=== PATIENT | male | born 1960 | race Caucasian/White ===

== ENCOUNTER 2017-12-09 06:48 | Day surgery (SDC) | payer BC ==
[2017-12-06 13:09] VITALS: BMI 45.0
--- NOTE | 2017-12-09 10:39 | OP ---
DATE OF PROCEDURE: 12/09/2017 PROCEDURES: Colonoscopy with biopsy and polypectomy. INDICATION FOR PROCEDURE: Screening for malignant neoplasms of the colon, personal history of colon polyps (diagnosed at age 24). DESCRIPTION OF PROCEDURES: After the risks and benefits of the procedure were explained to the patie nt including risks of bleeding, infection, perforation, reaction to anesthesia, aspiration and/or stefan n, informed consent was obtained. The patient was then taken to the endoscopy suite where deep sedat ion was administered via propofol and anesthesia support. Once adequate sedation was achieved, an ex ternal examination was performed and then the standard colonoscope was introduced into the rectum and advanced to the terminal ileum with some difficulty requiring manual abdominal pressure in order to facilitate passage of the scope. The quality of the prep was good to excellent with some solid debri s that was amenable to suctioning. The patient tolerated the procedure well with no immediate periop erative complications. Once the procedure was complete, the patient was taken to recovery area in sa tisfactory condition. COLONOSCOPY FINDINGS: Digital Rectal Exam: Normal. Colon Findings: Normal-appearing mucosa was seen in the terminal ileum as well as in the cecum, the ileocecal valve and appendiceal orifice. Three polyps measuring approximately 3-5 mm in size were se en in the ascending colon and completely removed with cold snare polypectomy. They were retrieved an d placed in a specimen jar for evaluation. Six polyps were seen in the transverse colon measuring ap proximately 3-8 mm in size and completely removed with combination of biopsy forceps and cold snare p olypectomy. They were all completely removed and retrieved and placed in specimen jar for evaluation . Three additional polyps were seen in the descending colon measuring 4-6 mm and were completely rem alan with cold snare polypectomy. They were retrieved and placed in a specimen jar for evaluation. Scattered small diverticula were seen in the distal descending and sigmoid colon. Otherwise normal m ucosa was seen in these regions as well as normal mucosa was seen in the rectum. Small internal hemo rrhoids were seen on rectal retroflexion. IMPRESSION: 1. Three ascending colon polyps measuring 3-5 mm in size, status post cold snare polypectomy. 2. Six transverse colon polyps measuring 4-8 mm, status post cold snare polypectomy and biopsy force ps removal. 3. Three descending colon polyps measuring 4-6 mm, status post cold snare polypectomy. 4. Mild left-sided diverticulosis. 5. Internal hemorrhoids. RECOMMENDATIONS: 1. We will follow up on the pathology results with repeat interval colonoscopy depending on patholog y results. 2. Would recommend a higher fiber diet given the presence of diverticulosis and hemorrhoids. 3. Follow up in the GI clinic as needed.
[2017-12-09] MEDS ORDERED: Acetaminophen 500 MG TAB ONE (10:47)
[2017-12-09] MEDS ORDERED: PROPOFOL 200 MG/20 ML VIAL ONE (16:42)
== END 2017-12-09 10:58 | disposition home or self-care (01) ==
LOC: SDC 06:48
PROVIDERS: ATTEND Internal Medicine
PROC: 0DBK8ZX Excision of Ascending Colon, Via Natural or Artificial Opening Endoscopic, Diagnostic (ICD-10-PCS; principal; 2017-12-09)
PROC: 0DBL8ZX Excision of Transverse Colon, Via Natural or Artificial Opening Endoscopic, Diagnostic (ICD-10-PCS; principal; 2017-12-09)
PROC: 0DBM8ZX Excision of Descending Colon, Via Natural or Artificial Opening Endoscopic, Diagnostic (ICD-10-PCS; principal; 2017-12-09)
DX: Z12.11 Encounter for screening for malignant neoplasm of colon (principal); D12.2 Benign neoplasm of ascending colon; K63.5 Polyp of colon; G47.30 Sleep apnea, unspecified; F17.200 Nicotine dependence, unspecified, uncomplicated; K64.8 Other hemorrhoids; Z88.5 Allergy status to narcotic agent; Z79.899 Other long term (current) drug therapy
CPT/HCPCS: 88305; J2704

== ENCOUNTER 2018-11-17 10:01 | Inpatient (IN) | payer BC ==
[2018-11-17] MEDS ORDERED: Diltiazem 125 MG/25 ML ONE (10:10)
[2018-11-17] MEDS ORDERED: Digoxin 0.5 MG/2 ML AMP ONE (10:21)
[2018-11-17] MEDS ORDERED: Magnesium 2 GM/50 ML BAG (IN WATER) ONE (10:23)
[2018-11-17 10:26] LABS: #Basophils 0.1 thou/uL (0.0-0.2); #Eosinphils 0.2 thou/uL (0.0-0.7); #Lymphocytes 2.4 thou/uL (1.20-3.40); #Monocytes 0.9 thou/uL (0.11-0.59); #Neutrophils 6.9 thou/uL (1.40-6.50); %Basophils 0.6 % (0.0-1.0); %Eosinophils 2.4 % (0.0-10.0); %Lymphocytes 22.9 % (21.0-51.0); %Monocytes 8.7 % (0.0-10.0); %Neutrophils 65.5 % (42.0-75.0); Hemoglobin 16.2 g/dL (14.0-18.0); Mean Corpuscular HGB CONC 32.9 g/dL (32.0-36.0); Mean Corpuscular Hemoglobin 30.6 pg (27.0-31.0); Mean Platelet Volume 9.2 fL (7.4-10.4); Platelet Count 157 thou/uL (130-400); RBC Distribution Width 13.9 % (11.5-14.5); Red Blood Cell (RBC) Count 5.28 mill/uL (4.70-6.10); White Blood Cell (WBC) Count 10.5 thou/uL (4.8-10.8)
--- NOTE | 2018-11-17 10:35 | RAD ---
EXAM: Single view of the chest HISTORY: Dyspnea COMPARISON: 01/03/2010 FINDINGS: Single view of the chest shows a normal sized cardiomediastinal silhouette. There is no michael dence of consolidation, mass, or pleural effusion. The bones are unremarkable. IMPRESSION: No evidence of acute cardiopulmonary disease
[2018-11-17 10:51] LABS: ALT (SGPT) 24 U/L (8-55); AST (SGOT) 17 U/L (5-34); Albumin 3.9 g/dL (3.5-5.0); Alkaline Phosphatase 69 U/L (40-150); Anion Gap 12 mmol/L (10-20); BUN (Urea Nitrogen) 19 mg/dL (8.4-25.7); Bilirubin, Total 0.7 mg/dL (0.2-1.2); CK (CPK) 152 U/L (30-200); Calc. Creatinine Clearance 0 mL/min (70-130); Carbon Dioxide 24 mmol/L (22-29); Chloride 105 mmol/L (98-107); Estimated GFR-MDRD 58; Globulin 2.6 g/dL (2.4-3.5); Glucose 144 mg/dL (70-105); Lipase 11 U/L (8-78); Potassium 4.2 mmol/L (3.5-5.1); Protein, Total 6.5 g/dL (6.0-8.3); Sodium 137 mmol/L (136-145)
--- NOTE | 2018-11-17 11:28 | CT ---
EXAM: CTA of the chest HISTORY: Shortness of breath for several weeks COMPARISON: None TECHNIQUE: Multiple contiguous axial images were obtained a CTA of the chest with contrast per pulmon rigo embolism protocol. 3-D oblique MIP reformats and direct coronal reformats were performed. FINDINGS: HEART: Normal in size without focal cardiac abnormality. PULMONARY ARTERIES: Normal in caliber without filling defects to suggest pulmonary emboli. MEDIASTINUM: No hilar or mediastinal lymphadenopathy. LUNGS: No focal infiltrates or masses. PLEURAL SPACE: Small bilateral pleural effusions with adjacent atelectasis CHEST WALL SOFT TISSUES: Unremarkable VISUALIZED OSSEOUS STRUCTURES: Unremarkable VISUALIZED SUBDIAPHRAGMATIC STRUCTURES: Unremarkable IMPRESSION: 1. No evidence of pulmonary thromboembolism 2. Small bilateral pleural effusions with adjacent atelectasis
[2018-11-17] MEDS ORDERED: Enoxaparin Sodium 100 MG/ML SYRINGE ONE (11:29)
[2018-11-17] MEDS ORDERED: Enoxaparin Sodium 80 MG/0.8 ML SYRINGE ONE (11:29)
[2018-11-17 13:22] LABS: Bilirubin Negative (Negative); Blood, Urine Negative (Negative); Clarity Clear (Clear); Glucose, Urine (Dipstick) Normal (Negative); Leukocyte Negative Leu/uL (Negative); Nitrite Negative (Negative); Protein, Urine (Dipstick) 100 mg/dL (Neg-Trace); RBC/HPF 0-3 HPF (0-3); Squamous Epithelial None Seen HPF (0-3); Urobilinogen Normal mg/dL (Less than 2); WBC/HPF 0-3 HPF (0-3)
[2018-11-17 13:44] LABS: Bacteria/HPF None Seen HPF (None Seen)
[2018-11-17] MEDS ORDERED: Ondansetron PF 4 MG/2 ML Vial IVP PRN ×2 (13:52→14:02)
[2018-11-17] MEDS ORDERED: Ondansetron ODT 4 MG TAB SL PRN (13:52)
[2018-11-17] MEDS ORDERED: Aspirin 325 MG TAB PO SCH (14:00)
[2018-11-17] MEDS ORDERED: cloNIDine 0.1 MG TAB PO PRN (14:02)
[2018-11-17] MEDS ORDERED: Ondansetron ODT 4 MG TAB PO PRN (14:02)
[2018-11-17] MEDS ORDERED: Acetaminophen 500 MG TAB PO PRN (14:02)
[2018-11-17] MEDS ORDERED: Labetalol HCl 100 MG/20 ML VIAL SLOW IVP PRN (14:02)
[2018-11-17 14:16] LABS: Troponin I 0.014 ng/mL (< 0.028)
[2018-11-17] MEDS: Digoxin 0.5 MG/2 ML AMP SLOW IVP SCH ×2 (17:20→22:36)
[2018-11-17 17:24] LABS: Troponin I 0.033 ng/mL (< 0.028)
--- NOTE | 2018-11-17 18:54 | HP ---
PRIMARY CARE PROVIDER: Anselmo Abraham MD CHIEF COMPLAINT: Shortness of breath. HISTORY OF PRESENT ILLNESS: This is a 58-year-old male, who presents to [facility] Emergency Department complaining of persistent and worsening shortness of breath, decreased exercise tolerance and activity level with lower extremity swelling over the last 3 to 4 weeks. The patient noted these symptoms improved with rest or relaxation, recurring with activity or working. The patient denied any recent trauma, injury, fever, chills, or increased cough. The patient does admit to smoking up to a pack of cigarettes daily and has noted a remote history of atrial fibrillation in 2003. The patient was treated medically at that time, but states he was not on anticoagulation. The patient removed himself from the medication after stabilizing, and states he has been doing fairly well over the last 15 years. The patient states he underwent a cardiac chemical stress test in 2018 including aortogram and echocardiogram with Dr. Tolbert. The patient states he was essentially given a clean bill of health, and states he takes no specific medication other than occasional aspirin. The patient states his activity and work schedule have been decreasing due to fatigue and shortness of breath as well as increasing swelling of his legs over the last 2 weeks. The patient felt like he was having difficulty with his lungs due to smoking and had been using his CPAP on a regular basis since 2008. The patient admits to some chest pain, but no jaw or left arm discomfort. The patient denied any personal history or strong family history of early coronary artery disease. In the emergency room, the patient underwent general evaluation with initial vital signs showing hypertension with diastolic blood pressures in the 110 to 115 as well as atrial fibrillation with rapid ventricular response, heart rates noted in the 130s. The patient received digoxin and Cardizem infusion in addition to subcutaneous Lovenox 1 mg/kg and diltiazem infusion after receiving a bolus. The patient also received magnesium sulfate and aspirin 324 mg. PAST MEDICAL HISTORY: 1. Tobacco abuse. 2. Chronic back pain. 3. History of atrial fibrillation in 2003. 4. Obesity. 5. Obstructive sleep apnea, on nocturnal CPAP. PAST SURGICAL HISTORY: 1. Status post bilateral total knee arthroplasty. 2. Status post appendectomy. 3. Status post of back surgery. CURRENT MEDICATIONS: Reviewed and negative. ALLERGIES: CODEINE. FAMILY HISTORY: Positive for hypertension. SOCIAL HISTORY: The patient is . Resides in the [facility]. Retired, performing farming and ranching activities currently. Smokes up to half a pack to a pack of cigarettes daily. No alcohol or illicit drug use. Accompanied by his and family in the emergency department. REVIEW OF SYSTEMS: CONSTITUTIONAL: Negative for weight loss or gain, ability to conduct usual activities. SKIN: Negative for rash, itching. EYES: Negative for double vision, pain. ENT/MOUTH: Negative for nose bleeding, neck stiffness, pain, tenderness. CARDIOVASCULAR: Negative for palpitations, dyspnea on exertion, orthopnea. RESPIRATORY: Negative for shortness of breath, wheezing, cough, hemoptysis, fever or night sweats. GASTROINTESTINAL: Negative for poor appetite, abdominal pain, heartburn, nausea, vomiting, constipation, or diarrhea. GENITOURINARY: Negative for urgency, frequency, dysuria, nocturia. MUSCULOSKELETAL: Negative for pain, swelling. NEUROLOGIC/PSYCHIATRIC: Negative for anxiety, depression. ALLERGY/IMMUNOLOGIC: Negative for skin rash, bleeding tendency. Otherwise, negative except as stated per HPI. PHYSICAL EXAMINATION: VITAL SIGNS: On admission, blood pressure 161/127, pulse 140, respiratory rate 22, temperature 98.7 degrees Fahrenheit, and O2 saturation 95% on room air. GENERAL APPEARANCE: This is a 58-year-old male, alert and oriented x3, pleasant, responsive, in no acute distress. HEENT: Pupils are equal, round, reactive to light and accommodation. Extraocular muscles are intact. Mild conjunctival injection bilaterally. Nares patent. OP is clear. Teeth in fair repair. NECK: Supple. No cervical adenopathy. No thyromegaly. No carotid bruits. No JVD appreciated. Cervical spine with full active and passive range of motion. No meningeal signs noted. CHEST: Diminished breath sounds with expiratory wheezing bilaterally. CARDIOVASCULAR: Distant heart sounds, S1 and S2, with irregular rate and rhythm. ABDOMEN: Obese. Landmarks are difficult to palpate due to the patient's body habitus. No rebound or guarding noted. EXTREMITIES: Warm and dry with fair turgor. Pitting edema to bilateral knees. Dobbins appearance to the lower extremities. Pulses palpable distally at the dorsalis pedis, posterior tibial, and popliteal arteries bilaterally. Capillary refill less than 2 seconds. NEUROLOGIC: Cranial nerves 2 through 12 are grossly intact. No focal or lateralizing signs appreciated. PERTINENT LABORATORY AND X-RAY FINDINGS: Sodium 137, potassium 4.2, chloride 105, CO2 of 24, BUN 19, creatinine 1.26, estimated GFR 58, glucose 144, calcium 9.0. LFTs within normal limits. Troponin-I negative x1. BNP 196. Albumin 3.9. Lipase 11. CBC within normal limits. D-dimer 1.84. Portable chest x-ray dated 11/17/2018, showed no acute cardiopulmonary process. CT angiogram of the chest, dated 11/17/2018, showed no evidence for pulmonary embolus. Small bilateral pleural effusions with associated atelectasis. EKG, dated 11/17/2018, by my interpretation shows atrial fibrillation with rapid ventricular response in the 130s. Attenuated R-waves noted in the precordial leads. Normal axis. ASSESSMENT AND PLAN: 1. Atrial fibrillation with rapid ventricular response. The patient will be admitted to the telemetry unit. We will continue rate control strategy with Cardizem 10 mg/hour. Continue Lovenox 1 mg/kg subcutaneously q.12 hours. Consult Cardiology Service for further investigation and consideration for ischemic rule out including cardiac catheterization. Check 2D transthoracic echocardiogram for wall motion abnormality and chamber dimensions. Check TSH and magnesium level. Continue aspirin 325 mg daily. 2. Hypertension. No formal diagnosis of hypertension prior to admission. We will continue serial blood pressure monitoring. Continue clonidine and labetalol as needed for systolic greater than or equal to 170. Continue Cardizem infusion. 3. Tobacco abuse. We will offer smoking cessation resources. DuoNeb q.4 hours scheduled x24 hours. 4. Chronic kidney disease, stage 3. Avoid nephrotoxic agents and limit contrast exposure. Serial creatinine monitoring. 5. Morbid obesity. Consider dietitian consult. [employer] diet. 6. Prophylaxis. SCDs while in bed. Pepcid 20 mg p.o. b.i.d. 7. Code status is full. Surrogate medical decision maker is the patient's spouse. Job ID: [id number]
[2018-11-17] MEDS: Famotidine 20 MG TAB PO SCH (20:39)
[2018-11-17] MEDS: Enoxaparin Sodium 60 MG/0.6 ML SYRINGE SC SCH (20:39)
[2018-11-17] MEDS: Enoxaparin Sodium 120 MG/0.8 ML SYRINGE SC SCH (20:39)
[2018-11-17] MEDS: Diltiazem 125 MG in Sodium Chloride 0.9% 100 ML IVPB SCH (21:31)
--- NOTE | 2018-11-17 22:14 | CON ---
DATE OF CONSULTATION: HISTORY OF PRESENT ILLNESS: Jose Luis Ortiz is a 58-year-old white male who was hospitalized here at [facility] in October 2004 with an episode of atrial fibrillation. He had previous normal noninvasive studies, but continued to have chest discomfort. He was found to have minimal coronary artery disease. He was discharged on Lanoxin 0.25 daily, Cardizem 240 daily, and aspirin 325 daily. He ultimately weaned himself off those medicines, states he has not had any problems over the last 14 years until now. Also in September 2017, he saw Dr. Tolbert. He had ultrasound of the aorta, which was normal, some type of a stress test which was normal as well as an echocardiogram which was normal. Over the last 2 to 3 weeks, he has had problems with increasing dyspnea where he could do less and less work. Also, he has developed peripheral edema over the last week. He denies any significant chest discomfort and did not notice any palpitations. Ultimately with his increased shortness of breath, came to the emergency room, was found to have atrial fibrillation with heart rates in the 130s, diastolic pressures in the 110-115 range. He has been placed on Cardizem drip. He has been given Lovenox 1 mg/kg b.i.d. and also has been given digoxin 0.25 twice IV. He states that his breathing has improved. PAST MEDICAL HISTORY: He denies any previous history of hypertension. He has obstructive sleep apnea, on CPAP, chronic back pain, history of atrial fibrillation in 2004, and obesity. PAST SURGICAL HISTORY: Status post bilateral knee replacements, appendectomy and back surgery. MEDICATIONS: None. ALLERGIES: CODEINE CAUSES NAUSEA. SOCIAL HISTORY: He smokes 1 pack per day, but has cut back to about 5 cigarettes per day now. He is a former rancher. He rarely drinks alcohol. FAMILY HISTORY: Negative for coronary artery disease with myocardial infarction or CABG in the immediate family. PHYSICAL EXAMINATION: VITAL SIGNS: Blood pressure 145/94, pulse of 87 and irregularly irregular. HEENT: PERRL. NECK: Supple. CHEST: Clear. CARDIAC: S1 and S2 normal without any S3, S4. 1/6 systolic ejection murmur. Carotid upstrokes are normal without bruits. ABDOMEN: Obese, normal bowel sounds. No tenderness. EXTREMITIES: Reveal 2+ pretibial edema to the knee. NEUROLOGIC: Grossly intact. SKIN: Warm and dry. LABORATORY DATA: EKG revealed atrial fibrillation with rapid ventricular response, 136 per minute, low-voltage QRS. CBC is unremarkable. D-dimer 1.84. Troponin I is up to 0.033. Sodium 137, potassium 4.2, chloride 105, carbon dioxide 24, BUN 19 , creatinine 1.26. BNP 196.0. TSH is normal. Chest CTA revealed no evidence of pulmonary embolism. There were small bilateral pleural effusions with adjacent atelectasis. IMPRESSION: 1. Paroxysmal atrial fibrillation, now with recurrence probably over the last 2- 3 weeks. His CHADS-VASc score is greater than 2 and I agree that he should have long-term anticoagulation. 2. Hypertension, untreated. 3. Elevated glucose, hemoglobin A1c to be performed in the morning. 4. Smoker. 5. Obstructive sleep apnea. PLAN: The patient will be maintained on Cardizem drip and 1 mg/kg of Lovenox b.i.d. Echocardiogram will be performed and further decision will be made regarding other therapy. It would probably be best to have him undergo electrical cardioversion while he is hospitalized. However, I would need to have better knowledge of his left ventricular function. Also with his peripheral edema, I feel that he should be diuresed. Job ID: [id number] [facility]
[2018-11-18] MEDS: Furosemide 20 MG/2 ML VIAL SLOW IVP SCH ×2 (05:59→14:12)
[2018-11-18 06:53] LABS: Hemoglobin A1c 6.6 % (4.0-6.0)
[2018-11-18 06:54] LABS: Anion Gap 12 mmol/L (10-20); BUN (Urea Nitrogen) 15 mg/dL (8.4-25.7); Calc. Creatinine Clearance 192 mL/min (70-130); Calcium 8.5 mg/dL (7.8-10.44); Carbon Dioxide 23 mmol/L (22-29); Cardiac Risk 4.4 (Less than 4.5); Chloride 104 mmol/L (98-107); Cholesterol 124 mg/dl (< 200 Desired); Estimated GFR-MDRD 74; Glucose 103 mg/dL (70-105); HDL Cholesterol 28 mg/dL (>60 Neg Risk); LDL Cholesterol, Calculated 79 mg/dL; Potassium 4.2 mmol/L (3.5-5.1); Sodium 135 mmol/L (136-145); Triglycerides 86 mg/dL (Less than 150)
[2018-11-18 07:16] LABS: Hemoglobin 15.5 g/dL (14.0-18.0); Mean Corpuscular HGB CONC 32.5 g/dL (32.0-36.0); Mean Corpuscular Hemoglobin 30.4 pg (27.0-31.0); Mean Corpuscular Volume 93.4 fL (78.0-98.0); Mean Platelet Volume 9.4 fL (7.4-10.4); Platelet Count 133 thou/uL (130-400); RBC Distribution Width 13.8 % (11.5-14.5); Red Blood Cell (RBC) Count 5.09 mill/uL (4.70-6.10); White Blood Cell (WBC) Count 8.9 thou/uL (4.8-10.8)
[2018-11-18] MEDS: Diltiazem 125 MG in Sodium Chloride 0.9% 100 ML IVPB SCH (08:46)
[2018-11-18] MEDS ORDERED: Prevnar 13-Val Conj/PF 0.5 ML SYRINGE IM ONE (09:00)
[2018-11-18] MEDS ORDERED: Aspirin 325 MG TAB PO SCH (09:00)
[2018-11-18 09:06] LABS: Eosinophils 8 % (0-10); Lymphocytes 32 % (21-51); MDiff Complete? YES; Monocytes 5 % (0-10); Neutrophil 52 % (42-75); RBC Morphology Normal; Reactive Lymphocytes 3 % (0-10)
[2018-11-18] MEDS: Enoxaparin Sodium 120 MG/0.8 ML SYRINGE SC SCH (09:31)
[2018-11-18] MEDS: Famotidine 20 MG TAB PO SCH ×2 (09:31→20:19)
[2018-11-18] MEDS: Enoxaparin Sodium 60 MG/0.6 ML SYRINGE SC SCH (09:32)
[2018-11-18] MEDS ORDERED: Amiodarone 150 MG, Admixture Fee 1 EACH in Dextrose 5% in Water 100 ML IVPB SCH (12:30)
[2018-11-18] MEDS: Amiodarone 450 MG in Dextrose 5% in Water 250 ML IVPB SCH ×2 (13:04→20:19)
--- NOTE | 2018-11-18 14:15 | PDOC.HOSPP ---
- Subjective Encounter Date: 11/18/18 Encounter Time: 14:05 Subjective: f/u for A-fib RVR on Amiodarone and Eliquis. Feels ok overall. No CP and SOB improved. - Objective Vital Signs & Weight: Vital Signs (12 hours) Temp Pulse Resp BP Pulse Ox 11/18/18 11:10 98.4 F 96 20 141/78 H 95 11/18/18 10:15 74 14 94 L 11/18/18 07:03 97.5 F L 82 18 117/88 96 11/18/18 06:30 61 14 100 11/18/18 04:00 97.5 F L 73 20 130/90 93 L Weight Weight 392 lb 8 oz I&O: 11/17/18 11/18/18 11/19/18 06:59 06:59 06:59 Intake Total 665 Output Total 1725 Balance -1060 Result Diagrams: 11/18/18 06:05 11/18/18 06:05 Radiology Reviewed by me: Yes (Echo - EF 40-45%, mild LAE, mod MR) EKG Reviewed by me: Yes (Tele - A-fib in 90-100's) Hospitalist ROS - Medication Medications: Active Medications Generic Name Dose Route Start Last Admin Trade Name Freq PRN Reason Stop Dose Admin Acetaminophen 1,000 mg 11/17/18 14:02 11/17/18 17:43 Tylenol PO 1,000 mg Q6H PRN Administration Mild Pain (1-3) Albuterol/Ipratropium 3 ml 11/17/18 15:00 11/18/18 10:15 Duoneb NEB 3 ml [id number] OLIMPIA Administration Famotidine 20 mg 11/17/18 21:00 11/18/18 09:31 Pepcid PO 20 mg BID OLIMPIA Administration Furosemide 20 mg 11/18/18 06:00 11/18/18 05:59 Lasix SLOW IVP 20 mg 0600,1400 OLIMPIA Administration Diltiazem HCl 125 mg/ Sodium 125 mls @ 10 mls/hr 11/17/18 14:02 11/18/18 08: 46 Chloride IVPB 125 mls INF OLIMPIA Administration Protocol 10 MG/HR Amiodarone HCl 450 mg/ 259 mls @ 0 mls/hr 11/18/18 09:45 11/18/18 13:04 Dextrose/Water IVPB 259 mls INF OLIMPIA Administration Protocol Per Protocol Amiodarone HCl 150 mg/ 103 mls @ 618 mls/hr 11/18/18 12:30 11/18/18 12:38 Miscellaneous Medication 1 IVPB 11/18/18 14:30 103 mls each/ Dextrose/Water NOW OLIMPIA Administration Protocol - Exam General Appearance: NAD, awake alert Eye: PERRL, anicteric sclera ENT: normocephalic atraumatic, no oropharyngeal lesions Neck: supple, symmetric, no JVD, no thyromegaly Heart: no gallops, no rubs, normal peripheral pulses, irregular Respiratory - other findings: diminished in bases, occasional wheeze Gastrointestinal: soft, non-tender, non-distended, normal bowel sounds, no palpable masses Gastrointestinal - other findings: obese Extremities: no cyanosis, 2+ LE edema Skin: normal turgor Neurological: cranial nerve grossly intact, no focal deficits, no new deficit Musculoskeletal: normal tone, normal strength Psychiatric: normal affect, normal behavior, A&O x 3 Hosp A/P (1) Atrial fibrillation with RVR Code(s): I48.91 - UNSPECIFIED ATRIAL FIBRILLATION Status: Acute Plan: Acute/subacute with persistent A-fib but rate improved, continue Amiodarone, Eliquis and monitor response, ? Cardioversion later this week (2) HTN (hypertension) Code(s): I10 - ESSENTIAL (PRIMARY) HYPERTENSION Status: Chronic Qualifiers: Hypertension type: essential hypertension Qualified Code(s): I10 - Essential (primary) hypertension Plan: Continue Coreg, titrate to optimal response (3) CKD (chronic kidney disease), stage III Code(s): N18.3 - CHRONIC KIDNEY DISEASE, STAGE 3 (MODERATE) Status: Chronic Plan: Avoid nephrotoxic meds and limit contrast exposure, serial creatinine (4) LOUANN (obstructive sleep apnea) Code(s): G47.33 - OBSTRUCTIVE SLEEP APNEA (ADULT) (PEDIATRIC) Status: Chronic Plan: Continue CPAP prn (5) Tobacco abuse Code(s): Z72.0 - TOBACCO USE Status: Chronic Plan: Tobacco cessation resources - Plan Stable currently Continue Amiodarone loading gtt Continue Eliquis Continue Coreg Continue Duonebs q4h prn Continue Lasix 20mg IV BID ? Cardioversion later this week Appreciate Cardiology assistance
[2018-11-18] MEDS: Carvedilol 3.125 MG TAB PO SCH (16:50)
[2018-11-18] MEDS ORDERED: Digoxin 0.5 MG/2 ML AMP SLOW IVP SCH (17:15)
[2018-11-18] MEDS: Apixaban 5 MG TAB PO SCH (20:20)
[2018-11-18] MEDS: Atorvastatin Calcium 10 MG TAB PO SCH (20:20)
[2018-11-19 05:33] LABS: Digoxin 0.61 ng/mL (0.8-2.0)
[2018-11-19] MEDS: Furosemide 20 MG/2 ML VIAL SLOW IVP SCH ×2 (06:14→14:50)
[2018-11-19] MEDS: Carvedilol 3.125 MG TAB PO SCH ×2 (08:42→17:28)
[2018-11-19] MEDS: Aspirin 81 mg Enteric Coated Tablet PO SCH (08:42)
[2018-11-19] MEDS: Famotidine 20 MG TAB PO SCH ×2 (08:42→21:05)
[2018-11-19] MEDS: Apixaban 5 MG TAB PO SCH ×2 (08:42→21:05)
[2018-11-19] MEDS: Amiodarone 450 MG in Dextrose 5% in Water 250 ML IVPB SCH (10:39)
[2018-11-19] MEDS ORDERED: Labetalol HCl 100 MG/20 ML VIAL SLOW IVP PRN (12:13)
[2018-11-19 15:18] VITALS: BMI 49.4
--- NOTE | 2018-11-19 18:14 | PDOC.HOSPP ---
- Subjective Encounter Date: 11/19/18 Encounter Time: 12:10 Subjective: Patient seen and examined for Afib with RVR. No CP or SOB. On Amiodarone drip. No new complaints. No overnight events - Objective Vital Signs & Weight: Vital Signs (12 hours) Temp Pulse Resp BP Pulse Ox 11/19/18 16:00 98.4 F 116 H 18 131/92 H 94 L 11/19/18 15:50 116 H 16 11/19/18 11:30 98.2 F 116 H 18 131/92 H 93 L 11/19/18 11:20 86 12 11/19/18 07:20 97.8 F 93 20 179/88 H 94 L 11/19/18 07:11 93 20 Weight Admit Weight 384 lb 9 oz Weight 384 lb 9 oz I&O: 11/18/18 11/19/18 11/20/18 06:59 06:59 06:59 Intake Total 995 980 8346 Output Total 1725 650 550 Balance -1060 -77 950 Result Diagrams: 11/18/18 06:05 11/18/18 06:05 EKG Reviewed by me: Yes (Tele Afib) Hospitalist ROS - Review of Systems Respiratory: reports: SOB with excertion Cardiovascular: denies: chest pain, palpitations, orthopnea, paroxysmal noc. dyspnea, edema, light headedness, other Gastrointestinal: denies: nausea, vomiting, abdominal pain, diarrhea, constipation, melena, hematochezia, other - Medication Medications: Active Medications Generic Name Dose Route Start Last Admin Trade Name Freq PRN Reason Stop Dose Admin Acetaminophen 1,000 mg 11/17/18 14:02 11/17/18 17:43 Tylenol PO 1,000 mg Q6H PRN Administration Mild Pain (1-3) Albuterol/Ipratropium 3 ml 11/17/18 15:00 11/19/18 15:50 Duoneb NEB 3 ml [id number] OLIMPIA Administration Apixaban 5 mg 11/18/18 21:00 11/19/18 08:42 Eliquis PO 5 mg BID OLIMPIA Administration Aspirin 81 mg 11/19/18 09:00 11/19/18 08:42 Ecotrin PO 81 mg DAILY OLIMPIA Administration Atorvastatin Calcium 10 mg 11/18/18 21:00 11/18/18 20:20 Lipitor PO 10 mg HS OLIMPIA Administration Carvedilol 3.125 mg 11/18/18 17:00 11/19/18 17:28 Coreg PO 3.125 mg BID-WM OLIMPIA Administration Famotidine 20 mg 11/17/18 21:00 11/19/18 08:42 Pepcid PO 20 mg BID OLIMPIA Administration Furosemide 20 mg 11/18/18 06:00 11/19/18 14:50 Lasix SLOW IVP 20 mg 0600,1400 OLIMPIA Administration Amiodarone HCl 450 mg/ 259 mls @ 0 mls/hr 11/18/18 09:45 11/19/18 10:39 Dextrose/Water IVPB 259 mls INF OLIMPIA Administration Protocol Per Protocol Sodium Chloride 10 ml 11/19/18 12:14 11/19/18 14:50 Flush - Normal Saline IVF 10 ml PRN PRN Administration Saline Flush - Exam General Appearance: NAD Neck: supple Heart: no rubs, irregular Respiratory: no wheezes, no ronchi, rales (at bases) Gastrointestinal: soft, non-tender, normal bowel sounds Extremities: 2+ LE edema Hosp A/P (1) Atrial fibrillation with RVR Code(s): I48.91 - UNSPECIFIED ATRIAL FIBRILLATION Status: Acute (2) Acute systolic (congestive) heart failure Code(s): I50.21 - ACUTE SYSTOLIC (CONGESTIVE) HEART FAILURE Status: Acute (3) HTN (hypertension) Code(s): I10 - ESSENTIAL (PRIMARY) HYPERTENSION Status: Chronic Qualifiers: Hypertension type: essential hypertension Qualified Code(s): I10 - Essential (primary) hypertension (4) LOUANN (obstructive sleep apnea) Code(s): G47.33 - OBSTRUCTIVE SLEEP APNEA (ADULT) (PEDIATRIC) Status: Chronic (5) Tobacco abuse Code(s): Z72.0 - TOBACCO USE Status: Chronic (6) Morbid obesity with BMI of 45.0-49.9, adult Code(s): E66.01 - MORBID (SEVERE) OBESITY DUE TO EXCESS CALORIES; Z68.42 - BODY MASS INDEX (BMI) 45.0-49.9, ADULT Status: Chronic (7) DM2 (diabetes mellitus, type 2) Status: Chronic Qualifiers: Chronic kidney disease stage: stage 2 (mild) - Plan On Amiodarone drip Cont IV Lasix On Eliquis AM labs Cont Coreg Consult manugrapher ?EL-CV
[2018-11-19] MEDS: Amiodarone 200 MG TAB PO SCH (21:05)
[2018-11-19] MEDS: Atorvastatin Calcium 10 MG TAB PO SCH (21:05)
[2018-11-20 05:03] LABS: Hemoglobin 15.7 g/dL (14.0-18.0); Platelet Count 153 thou/uL (130-400)
[2018-11-20 05:20] LABS: Anion Gap 11 mmol/L (10-20); BUN (Urea Nitrogen) 20 mg/dL (8.4-25.7); Calc. Creatinine Clearance 148 mL/min (70-130); Calcium 8.8 mg/dL (7.8-10.44); Carbon Dioxide 32 mmol/L (22-29); Chloride 100 mmol/L (98-107); Estimated GFR-MDRD 56; Glucose 125 mg/dL (70-105); Magnesium 2.2 mg/dL (1.6-2.6); Potassium 4.2 mmol/L (3.5-5.1); Sodium 139 mmol/L (136-145)
[2018-11-20] MEDS: Furosemide 40 MG/4 ML VIAL SLOW IVP SCH ×2 (05:36→13:28)
[2018-11-20] MEDS ORDERED: Digoxin 0.5 MG/2 ML AMP SLOW IVP SCH (09:15)
[2018-11-20] MEDS: Apixaban 5 MG TAB PO SCH ×2 (09:34→20:54)
[2018-11-20] MEDS: Amiodarone 200 MG TAB PO SCH ×4 (09:34→20:53)
[2018-11-20] MEDS: Famotidine 20 MG TAB PO SCH ×2 (09:34→20:53)
[2018-11-20] MEDS: Aspirin 81 mg Enteric Coated Tablet PO SCH (09:35)
[2018-11-20] MEDS: Carvedilol 6.25 MG TAB PO SCH ×2 (09:35→18:27)
[2018-11-20] MEDS: Potassium Chloride 10 MEQ TAB PO SCH ×2 (09:35→18:26)
--- NOTE | 2018-11-20 12:41 | PRG ---
DATE OF SERVICE: 11/20/2018 SUBJECTIVE: The patient is seen and examined at the bedside. He had RVR this morning after he has breathing treatment. He did not feel that at all. OBJECTIVE: VITAL SIGNS: Blood pressure is 131/82, pulse is 79, respirations 16, O2 saturation is 93% on room air, temperature is 98.5. His BMI is 48.5. GENERAL: He is obese. HEENT: His eyes are PERRLA. Sclerae are nonicteric. Oral mucosa is moist. NECK: Supple, obese. LUNGS: Bilateral crackles at both bases. HEART: S1 and S2. Irregularly irregular. No S3. No S4. ABDOMEN: Obese, soft, nontender. EXTREMITIES: 2+ peripheral edema similar on both lower extremities below the knees. NEUROLOGIC: He is alert and oriented x4. There are no any motor or sensory deficits. LABORATORY DATA: Hemoglobin of 15.7, hematocrit 48.5, platelet count 153,000. Sodium of 139, potassium 4.2, chloride 100, CO2 of 32, BUN 20, creatinine 1.31, calcium 8.8, and magnesium 2.2. IMPRESSION: 1. Atrial fibrillation with rapid ventricular response, still in atrial fibrillation. 2. Acute systolic congestive heart failure, left ventricular ejection fraction estimated at 45%. 3. Hypertension. 4. Morbid obesity. 5. Obstructive sleep apnea. 6. Tobacco abuse. 7. Diabetes mellitus, type 2. 8. Chronic kidney disease, stage 2. PLAN: The patient will continue on his apixaban, amiodarone, and aspirin. He will continue on carvedilol, Lipitor, and Lasix. Dr. Holland will make decision about the next step in terms of putting his heart back to normal sinus rhythm. I am going to review his home medications and plan to make his DuoNeb only p.r.n. as needed since he had an episode when his heart rate went up to 170s after the breathing treatment. We will continue his potassium supplementation since he is diuresed and his urine output was 1600 mL for the last 24 hours and we will try to limit his fluid intake to 1500 mL per 24 hours. Job ID: [id number]
[2018-11-20] MEDS: Atorvastatin Calcium 10 MG TAB PO SCH (20:53)
[2018-11-21] MEDS: Furosemide 40 MG/4 ML VIAL SLOW IVP SCH (06:17)
[2018-11-21] MEDS ORDERED: PROPOFOL 40 ML ONE (08:52)
[2018-11-21 11:18] LABS: Anion Gap 14 mmol/L (10-20); BUN (Urea Nitrogen) 21 mg/dL (8.4-25.7); Calc. Creatinine Clearance 144 mL/min (70-130); Calcium 9.5 mg/dL (7.8-10.44); Carbon Dioxide 31 mmol/L (22-29); Chloride 99 mmol/L (98-107); Estimated GFR-MDRD 56; Glucose 122 mg/dL (70-105); Potassium 4.3 mmol/L (3.5-5.1); Sodium 140 mmol/L (136-145)
--- NOTE | 2018-11-21 11:48 | OP ---
DATE OF PROCEDURE: 11/21/2018 PROCEDURE PERFORMED: Transesophageal echocardiogram. INDICATION: A 58-year-old gentleman with paroxysmal atrial fibrillation. DESCRIPTION OF PROCEDURE: The patient was taken to the PACU. The patient was sedated by Anesthesiology. Transesophageal probe was placed into the distal esophagus and stomach. Echocardiographic images were obtained. The transesophageal probe was removed. FINDINGS: 1. Mild decrease in left ventricular systolic function. 2. Left atrial enlargement. 3. The aortic valve leaflets are thickened with reduced leaflet excursion suggestive of avug-yp-zvfddenh aortic stenosis. 4. Zgqoehxf-dr-vctraq mitral regurgitation. 5. Mild tricuspid regurgitation. 6. Spontaneous contrast noted in the left atrium and left atrial appendage. 7. No formed thrombus in the left atrium and left atrial appendage. 8. Atherosclerotic debris in the descending aorta. IMPRESSION: Spontaneous contrast with no formed thrombus in the left atrium and left atrial appendage. Job ID: [id number]
[2018-11-21] MEDS: Famotidine 20 MG TAB PO SCH (12:14)
[2018-11-21] MEDS: Aspirin 81 mg Enteric Coated Tablet PO SCH (12:14)
[2018-11-21] MEDS: Apixaban 5 MG TAB PO SCH (12:14)
[2018-11-21] MEDS: Carvedilol 6.25 MG TAB PO SCH (12:15)
[2018-11-21] MEDS: Amiodarone 200 MG TAB PO SCH (12:17)
[2018-11-21] MEDS: Potassium Chloride 10 MEQ TAB PO SCH (12:19)
[2018-11-21 12:43] VITALS: BP 133/73; TEMP 97.8
--- NOTE | 2018-11-21 13:03 | DIS ---
DATE OF ADMISSION: 11/17/2018 DATE OF DISCHARGE: 11/21/2018 DIAGNOSES AT THE TIME OF DISCHARGE: 1. Atrial fibrillation with rapid ventricular response, status post a cardioversion, now in sinus rhythm. 2. Acute systolic congestive heart failure with left ventricular ejection fraction estimated at 45%. 3. Hypertension. 4. Morbid obesity. 5. Obstructive sleep apnea. 6. Tobacco abuse. 7. Diabetes mellitus, type 2. 8. Chronic kidney disease, stage 2. CONSULTANTS: Dr. Gustabo Holland, Cardiology Service. PROCEDURE: Cardioversion. HOSPITAL COURSE: The patient is a 58-year-old male who was admitted to the hospital with shortness of breath. He had decreased exercise tolerance and activity level with lower extremity swelling over the last 3 to 4 weeks prior to this hospitalization. The patient denied any recent trauma, injury, fevers, chills, or increased cough. He admitted to smoke up to a pack of cigarettes per day, and he has a remote history of atrial fibrillation in 2003. Apparently, he underwent cardiac chemical stress test at Dr. Tolbert's office in 2018. Apparently, he was given a Cmed bill viVood and stated that he was not taking any specific medications except for aspirin. Apparently, he has been using CPAP on a regular basis since 2008. In the emergency room, he underwent general evaluation with initial vital signs showing hypertension with diastolic blood pressure in 110 to 115, as well as atrial fibrillation with rapid ventricular response, heart rate noted in the 130s. The patient received digoxin and Cardizem infusion in addition to subcutaneous Lovenox 1 mg/kg and diltiazem infusion after receiving a bolus. Also, he received magnesium sulfate and aspirin and got admitted to the hospital. At the time of admission, his sodium was 137, potassium 4.2, chloride 105, CO2 of 24, BUN 19, and creatinine 1.26. Troponin I was negative x1. BNP 196. D-dimer is 1.84. Portable chest x-ray dated 11/17, showed no acute cardiopulmonary process. CT angiogram of the chest showed no evidence of PE, small bilateral pleural effusions with associated atelectasis, and EKG at the time of admission showed atrial fibrillation with rapid ventricular response in 130s, attenuated R-waves noted in the precordial leads and axis was normal. The patient was continued on Cardizem drip. Also, he was continued on Lovenox subcutaneously 1 mg/kg every 12 hours. Cardiology Service was consulted, and 2D echo was ordered. The patient was seen by [employer], Dr. Gustabo Holland, who recommended to continue his Cardizem drip and full anticoagulation with Lovenox. Also, he was started on Lasix for his peripheral edema and fluid overload. Echocardiogram was done and showed technically difficult examination, but left ventricular ejection fraction was estimated at 40% to 45%. Left atrium was mildly dilated. There was moderate mitral regurgitation and mild aortic stenosis. The patient was started on amiodarone, and his Cardizem was stopped. He was also switched to apixaban 5 mg twice a day from his full dose of heparin. He did not convert spontaneously, and he required cardioversion which was done by Dr. Guthrie this morning. He converted him to sinus rhythm with 200 joules of electrical shock. The patient is doing well. His blood pressure is 122/82, pulse is 71, respiratory rate is 18, and O2 saturation is 95% on room air. He was seen and examined before his discharge. Prior to this cardioversion procedure, he had transesophageal echo done, which showed mild decreased in left ventricular systolic function, mild to moderate aortic stenosis, moderate to severe mitral regurgitation, and no formed thrombus in the left atrium or in the left atrial appendage was present. The patient was discharged to home in good condition with recommendation to stay on heart healthy, diabetic diet. His glycemia is slightly elevated, and his hemoglobin A1c came back at 6.6. He is willing to stay on diet to control his glycemia. If this is not working, he will have his primary care physician to start him on some diabetic medications. MEDICATIONS: At the time of discharge, 1. Potassium chloride 10 mEq once a day. 2. Furosemide 40 mg once a day. 3. Carvedilol 6.25 mg twice a day. 4. Atorvastatin 10 mg at bedtime. 5. Aspirin 81 mg once a day. 6. Eliquis 5 mg twice a day. 7. Amiodarone 400 mg twice a day for 2 weeks, then 200 mg twice a day for 2 weeks, then 200 mg once a day. FOLLOWUP: He is going to follow up with his primary care physician in [address] Holland in 2 to 3 weeks, and he will have kidney checked in his primary care physician's office in 1 week. He was counseled about his smoking habits, and he is telling us that he will work on that. Discharge time is less than 30 minutes. Job ID: [id number]
[2018-11-21] MEDS ORDERED: PROPOFOL 200 MG/20 ML VIAL ONE (15:38)
--- NOTE | 2018-11-21 19:22 | OP ---
DATE OF PROCEDURE: 11/21/18 SURGEON: Gustabo Holland M.D. PROCEDURE: Electrical cardioversion. Patient was sedated by anesthesia after previously undergoing transesophageal echo which did not show any evidence of intracardiac thrombus. With 200 joules she remained in atrial fibrillation. With 300 joules of synchronized cardioversion she returned to sinus rhythm. Patient tolerated the procedure w ell.
[2018-11-21] MEDS ORDERED: Amiodarone 200 MG TAB PO SCH (21:00)
[2018-11-22] MEDS ORDERED: Furosemide 40 MG TAB PO SCH (07:30)
[2018-11-22] MEDS ORDERED: Potassium Chloride 10 MEQ TAB PO SCH (08:00)
--- NOTE | 2018-11-23 17:22 | EKG ---
Test Reason : PPOST EL/CARDIOVERS Blood Pressure : / mmHG Vent. Rate : 072 BPM Atrial Rate : 072 BPM P-R Int : 190 ms QRS Dur : 090 ms QT Int : 406 ms P-R-T Axes : 059 096 043 degrees QTc Int : 444 ms Normal sinus rhythm Rightward axis Borderline ECG When compared with ECG of 17-NOV-2018 11:47, (Unconfirmed) Sinus rhythm has replaced Atrial fibrillation Confirmed by JOMAR CASTELLANO (2) on 11/23/2018 5:22:21 PM Referred By: NONA Confirmed By:JOMAR CASTELLANO
== END 2018-11-21 14:45 | disposition home or self-care (01) | DRG 308 ==
LOC: ERS 10:01 → 2NO 13:16
PROVIDERS: ADMIT Family Medicine; ATTEND Family Medicine
PROC: 3E0234Z Introduction of Serum, Toxoid and Vaccine into Muscle, Percutaneous Approach (ICD-10-PCS; 2018-11-18)
PROC: B24BZZ4 Ultrasonography of Heart with Aorta, Transesophageal (ICD-10-PCS; principal; 2018-11-21)
PROC: 5A2204Z Restoration of Cardiac Rhythm, Single (ICD-10-PCS; 2018-11-21)
DX: I48.0 Paroxysmal atrial fibrillation (principal); I50.21 Acute systolic (congestive) heart failure; I13.0 Hypertensive heart and chronic kidney disease with heart failure and stage 1 through stage 4 chronic kidney disease, or unspecified chronic kidney disease; Z68.42 Body mass index [BMI] 45.0-49.9, adult; I48.1 Persistent atrial fibrillation; F17.210 Nicotine dependence, cigarettes, uncomplicated; G47.33 Obstructive sleep apnea (adult) (pediatric); Z96.653 Presence of artificial knee joint, bilateral; E66.01 Morbid (severe) obesity due to excess calories; E11.22 Type 2 diabetes mellitus with diabetic chronic kidney disease; E11.65 Type 2 diabetes mellitus with hyperglycemia; N18.2 Chronic kidney disease, stage 2 (mild); I25.10 Atherosclerotic heart disease of native coronary artery without angina pectoris; G89.29 Other chronic pain; M54.9 Dorsalgia, unspecified; I08.3 Combined rheumatic disorders of mitral, aortic and tricuspid valves; Z23 Encounter for immunization; Z90.49 Acquired absence of other specified parts of digestive tract; Z99.89 Dependence on other enabling machines and devices; Z88.5 Allergy status to narcotic agent
CPT/HCPCS: 36415; 71045; 71275; 80048; 80053; 80061; 80162; 81003; 81015; 82550; 83036; 83690; 83735; 83880; 84443; 84484; 85007; 85014; 85018; 85025; 85027; 85049; 85379; 90471; 90670; 92960; 93005; 93010; 93306; 93312; 93798; 94640; 96365; 96366; 96372; 96375; G0009; J0282; J1160; J1650; J1940; J2704; J3475; J3490; J7070; J7620

== ENCOUNTER 2019-05-11 13:14 | Inpatient (IN) | payer BC ==
[2019-05-11 15:11] VITALS: BMI 50.7
[2019-05-11] MEDS ORDERED: Dextrose 50% Abboject 50 ML SYRINGE SLOW IVP PRN (15:58)
[2019-05-11] MEDS ORDERED: HumaLOG 300 UNITS/3 ML VIAL SC PRN ×2 (15:58)
[2019-05-11] MEDS ORDERED: Bisacodyl 10 MG SUPP PR PRN (15:58)
[2019-05-11] MEDS ORDERED: Calcium Carbonate 500 MG ChewTAB PO PRN (15:58)
[2019-05-11] MEDS ORDERED: Dextrose 5% in Water 1,000 ML IV PRN (15:58)
[2019-05-11] MEDS ORDERED: Senokot S 8.6-50 MG TAB PO PRN (15:58)
[2019-05-11] MEDS ORDERED: Loperamide HCl 2 MG CAP PO PRN (15:58)
[2019-05-11] MEDS ORDERED: Acetaminophen 325 MG TAB PO PRN (15:58)
[2019-05-11] MEDS ORDERED: Atropine Sulfate 0.4 mg/1 ml Vial IVP PRN (15:59)
[2019-05-11 16:18] LABS: Troponin I Less than 0.010 ng/mL (< 0.028)
--- NOTE | 2019-05-11 18:19 | HP ---
PRIMARY CARE PHYSICIAN: Payton Redd PA-C. REASON FOR ADMISSION: Complete heart block. HISTORY OF PRESENT ILLNESS: A 58-year-old male; who has underlying history of morbid obesity; atrial fibrillation, on chronic anticoagulation therapy; who initially went to [facility] for evaluation of generalized weakness. The patient reports that for last several days, he was experiencing intermittent episodes of dizziness. The patient was experiencing some weird sensation in his lower part as well as upper part of the body and dizziness. Per the patient, he was describing electrical sensation in his upper and lower part of body along with dizziness and sometimes near syncopal episode as if he is going to pass out. Initially, the patient was thinking that he had ear problem and that is why he was following ENT physician and who has treated recently right ear infection and that is why the patient was attributing to be due to ear discomfort, but that was treated with ciprofloxacin and his ear problem completely resolved. Even after that, the patient was continuously complaining of intermittent dizziness. ENT physician also referred him to see Neurology, but the patient was not able to get any appointment till May. The patient has several episodes and that is why he went to [facility], where he had routine evaluation done with CT brain, which was negative. Chest x-ray was unremarkable and routine blood test was also unremarkable. Given his multiple risk factors, ER physician decided to transfer him to here in the hospital for observation. When the patient arrived to the hospital, at that time, we noted that on the quill winder, he had complete heart block and 4.5-second pause and the patient had exactly similar symptoms, which he was describing on history. We decided to transfer him to ICU, and we consulted Cardiology and changed to inpatient status. PAST MEDICAL HISTORY: History of atrial fibrillation, on amiodarone and beta jacques; chronic systolic heart failure with EF 45% based on last echo; tobacco abuse disorder, chronic low back pain; morbid obesity; obstructive sleep apnea, on CPAP; diabetes, type 2. PAST SURGICAL HISTORY: Bilateral total knee arthroplasty, appendicectomy, back surgery. ALLERGIES: CODEINE. FAMILY HISTORY: Positive for hypertension. SOCIAL HISTORY: The patient is . He lives in [place]. He is retired. He is performing farming and ranching activity. He smokes about half pack per day. No alcohol. No illicit drug abuse. REVIEW OF SYSTEMS: CONSTITUTIONAL: Negative for weight loss or gain, ability to conduct usual activities. SKIN: Negative for rash, itching. EYES: Negative for double vision, pain. ENT/MOUTH: Negative for nose bleeding, neck stiffness, pain, tenderness. CARDIOVASCULAR: Negative for palpitations, dyspnea on exertion, orthopnea. RESPIRATORY: Negative for shortness of breath, wheezing, cough, hemoptysis, fever or night sweats. GASTROINTESTINAL: Negative for poor appetite, abdominal pain, heartburn, nausea, vomiting, constipation, or diarrhea. GENITOURINARY: Negative for urgency, frequency, dysuria, nocturia. MUSCULOSKELETAL: Negative for pain, swelling. NEUROLOGIC/PSYCHIATRIC: Negative for anxiety, depression. ALLERGY/IMMUNOLOGIC: Negative for skin rash, bleeding tendency. Please see my HPI for pertinent positives and negatives. All other review of systems reviewed and negative except as mentioned in HPI. PAST PSYCHIATRIC HISTORY: Reviewed and negative. EMERGENCY ROOM COURSE: The patient was given aspirin. CURRENT HOME MEDICATIONS: 1. Amiodarone 100 mg daily. 2. Metformin ER 500 mg daily. 3. Eliquis 5 mg b.i.d. 4. Coreg 6.25 mg p.o. b.i.d. PHYSICAL EXAMINATIONS: VITAL SIGNS: On arrival, temperature 98.5, pulse 72, respiratory rate 17, saturation 96% on room air, and blood pressure 137/87. GENERAL: The patient is currently alert, awake, no obvious acute distress. HEAD: Normocephalic and atraumatic. NECK: Supple. No JVD. No meningeal signs of irritation. LUNGS: Clear to auscultation without any rhonchi or rales. CARDIAC: S1 and S2, irregular. Murmur noted at apex. ABDOMEN: Morbid obesity limiting examination. EXTREMITIES: No edema. Good distal pulsation. NEUROLOGIC: Nonfocal examination. PSYCHIATRIC: Normal affect. SKIN: No skin rash. HEMATOLOGIC: No lymphadenopathy. NEUROLOGIC: The patient is alert and oriented x3, speech normal, cranial nerves 2 through 12 intact. Motor, 5/5 in all four limbs. Sensation bilaterally symmetrical. No cerebellar sign. Plantar bilateral flexor. SIGNIFICANT LABORATORY DATA: Chest x-ray based on my review, no acute cardiopulmonary process. CT brain based on my review, no acute intracranial process. CBC; WBC 8.4, hemoglobin 17.0, platelets 157. BMP; sodium 139, potassium 4.4, chloride 104, carbon dioxide 28, anion gap 11, BUN 20, creatinine 1.08, glucose 167, calcium 9.1. LFT; AST 12, ALT 16, alkaline phosphatase 53, albumin 4.0. Troponin negative x2. BNP 36.4. Urinalysis is showing proteinuria. skip locator showed pause 4.5 seconds with complete heart block. ASSESSMENT: Impression; 1. Complete heart block. 2. Pause with a history of atrial fibrillation, consistent with sick sinus syndrome. 3. Chronic systolic heart failure, euvolemic. 4. Diabetes, type 2. 5. Morbid obesity with BMI 50. 6. History of atrial fibrillation, on chronic anticoagulation. 7. Hypertension. PLAN: Full admission to ICU. Cardiology consulted. Discontinue amiodarone and Coreg for now until further evaluation. We will keep atropine ready, as needed basis. We will hold on Eliquis therapy in case the patient will need a pacemaker. Echocardiography will be obtained. Hyperglycemia protocol. We will hold on metformin as well. We will do serial cardiac enzymes and repeat labs tomorrow. DVT prophylaxis, Lovenox 40 mg subcu daily. DISPOSITION PLAN: Based on clinical course. Plan of care discussed with the patient in detail. Job ID: [id number]
[2019-05-11] MEDS: DOBUTamine 500 mg/250 ml 250 ML IVPB SCH (18:30)
[2019-05-11 18:37] LABS: Troponin I Less than 0.010 ng/mL (< 0.028)
[2019-05-11] MEDS: Famotidine 20 MG TAB PO SCH (20:15)
[2019-05-11] MEDS: hydrALAZINE 25 MG TAB PO SCH (20:21)
--- NOTE | 2019-05-11 23:04 | CON ---
DATE OF CONSULTATION: HISTORY OF PRESENT ILLNESS: Jose Luis Ortiz is a 58-year-old white male, who was hospitalized here in October 2004 with an episode of atrial fibrillation. He had normal noninvasive studies, but continued to have chest discomfort, underwent cardiac catheterization and had mild plaquing of the mid LAD. He was seen by Dr. Leung at that time. He was discharged on digoxin 0.25 daily, Cardizem 240 daily and aspirin 325 daily. He ultimately weaned himself off those medicines and did not have any further arrhythmias until he presented in October 2018. Also in September 2017, he saw Dr. Tolbert. He had some type of stress test, which he states was normal and an echocardiogram that was normal. When he presented in October 2018, he complained of 2-3 weeks of increased dyspnea where he could do less and less work. He developed peripheral edema. He denied any chest discomfort or palpitations. With his increased shortness of breath, he came to the emergency room. He was found to have a heart rate of 130s and was in atrial fibrillation. Diastolic pressures were in the 110-115 range. He was placed on Cardizem drip, given Lovenox 1 mg/kg b.i.d. and also was given digoxin 0.25 mg IV twice for rate control. His echocardiogram revealed ejection fraction of 40% to 45%. It was felt that he had acute systolic heart failure. He also had moderate mitral regurgitation and mild aortic stenosis with a mean gradient of 12, peak gradient of 34. With left ventricular dysfunction, he was loaded with amiodarone and underwent transesophageal echo by Dr. Guthrie, which revealed mild decrease in left ventricular systolic function, hevn-mh-antnkjjd aortic stenosis, zxmtzhvj-tt-ckkcyx mitral regurgitation. He had no thrombus and this is followed by an electrocardioversion. With 200 joules, he has remained in atrial fibrillation and with 300 joules converted to sinus rhythm. He was placed on tapering doses of amiodarone. He was seen in the office on December 18, 2018. He continued to remain in sinus rhythm. He was started on Entresto one half tablet b.i.d., however, he complained of possible throat swelling with this and that was discontinued. Also at times, his blood pressure would be low and his dose of carvedilol was reduced to 3.125 b.i.d. He is to come to the office for repeat echo sometime in the next week. He now presented to the emergency room, complained of increasing weakness, feeling of tingling all over as well as dizziness and his vision would gradually blacken. However, he has not had any syncopal spells. While on telemetry, he had an episode of complete heart block over 6 seconds, but did not lose consciousness with this. He therefore was transferred to the unit. He denies any chest discomfort and denies any recurrence of shortness of breath like he had in October. PAST MEDICAL HISTORY: Hypertension, diabetes, hypercholesterolemia, history of obstructive sleep apnea on CPAP, chronic back pain, history of atrial fibrillation in 2004, plaquing of the mid LAD on catheterization in 2004 and obesity. PAST SURGICAL HISTORY: Status post bilateral knee replacement, appendectomy, and back surgery. MEDICATIONS: 1. Metformin daily. 2. Eliquis 5 mg b.i.d. 3. Amiodarone 100 mg daily. 4. Carvedilol 3.125 b.i.d. ALLERGIES: CODEINE CAUSES NAUSEA. SOCIAL HISTORY: He smoked 1 pack per day, but is down to 5 cigarettes per day. He rarely drinks. He is a trevizo and rancher. FAMILY HISTORY: Negative for coronary artery disease, although his mother did have apparently valve replacement surgery. REVIEW OF SYSTEMS: A 10-point review of systems is otherwise unremarkable. PHYSICAL EXAMINATION: VITAL SIGNS: Blood pressure 137/87, pulse of 72. HEENT: PERRL. NECK: Supple. CHEST: Clear. CARDIAC: S1 and S2 normal without any S3 or S4. There was a 1/6 systolic murmur along the left sternal border. Carotid upstroke is normal without bruits. ABDOMEN: Obese, normal bowel sounds. No tenderness. EXTREMITIES: Revealed no clubbing, cyanosis, or edema. NEUROLOGIC: Grossly intact. SKIN: Warm and dry. LABORATORY DATA: EKG on admission revealed normal sinus rhythm and was unremarkable. As noted above, he had an episode of complete heart block with 6 seconds of P-waves, but no QRS. CBC was unremarkable. Sodium 139, potassium 4.4, chloride 104, carbon dioxide 28, BUN 20, creatinine 1.08, glucose of 167. Troponin I is normal x2. BNP 36.4. IMPRESSION: 1. Episodes of lightheadedness, dizziness, tingling, darkening of vision with finding of complete heart block while being monitored. 2. Atrial fibrillation status post cardioversion in October 2018. 3. Systolic heart failure with ejection fraction 40% to 45%. However, his left ventricular function has not been reassessed since he was converted in October 2018. 4. Mid left anterior descending artery plaque on catheterization in 2004. 5. Hypertension. 6. Diabetes. 7. Hypercholesterolemia. 8. Smoker. 9. Obesity. 10. Obstructive sleep apnea. PLAN: Amiodarone and carvedilol will be discontinued at this time. He will be placed on low-dose dobutamine. His Eliquis needs to be held for 48-72 hours prior to device implantation. Echocardiogram needs to be repeated to reassess left ventricular function and he certainly may need a biventricular pacemaker or defibrillator. However, if his left ventricular function appears to return to normal, then a dual-chamber pacemaker would suffice. Job ID: [id number] QUAN
[2019-05-12 04:12] LABS: #Basophils 0.1 thou/uL (0.0-0.2); #Eosinphils 0.3 thou/uL (0.0-0.7); #Lymphocytes 2.4 thou/uL (1.20-3.40); #Monocytes 0.9 thou/uL (0.11-0.59); #Neutrophils 5.1 thou/uL (1.40-6.50); %Basophils 0.8 % (0.0-1.0); %Eosinophils 3.4 % (0.0-10.0); %Lymphocytes 27.8 % (21.0-51.0); %Monocytes 9.8 % (0.0-10.0); %Neutrophils 58.3 % (42.0-75.0); Hemoglobin 16.1 g/dL (14.0-18.0); Mean Corpuscular HGB CONC 33.1 g/dL (32.0-36.0); Mean Corpuscular Hemoglobin 30.8 pg (27.0-31.0); Mean Corpuscular Volume 92.9 fL (78.0-98.0); Mean Platelet Volume 8.6 fL (7.4-10.4); Platelet Count 143 thou/uL (130-400); RBC Distribution Width 12.6 % (11.5-14.5); Red Blood Cell (RBC) Count 5.23 mill/uL (4.70-6.10); White Blood Cell (WBC) Count 8.7 thou/uL (4.8-10.8)
[2019-05-12 04:13] LABS: INR-International Normal Ratio 0.9; Prothrombin Time 12.6 SEC (12.0-14.7)
[2019-05-12 04:26] LABS: ALT (SGPT) 12 U/L (8-55); AST (SGOT) 12 U/L (5-34); Albumin 3.8 g/dL (3.5-5.0); Alkaline Phosphatase 43 U/L (40-110); Anion Gap 14 mmol/L (10-20); BUN (Urea Nitrogen) 18 mg/dL (8.4-25.7); Bilirubin, Total 0.4 mg/dL (0.2-1.2); Calc. Creatinine Clearance 190 mL/min (70-130); Calcium 8.9 mg/dL (7.8-10.44); Carbon Dioxide 25 mmol/L (22-29); Chloride 100 mmol/L (98-107); Estimated GFR-MDRD 72; Globulin 2.7 g/dL (2.4-3.5); Glucose 132 mg/dL (70-105); Potassium 3.7 mmol/L (3.5-5.1); Protein, Total 6.5 g/dL (6.0-8.3); Sodium 135 mmol/L (136-145)
[2019-05-12] MEDS: Famotidine 20 MG TAB PO SCH ×2 (08:29→20:16)
[2019-05-12] MEDS ORDERED: FLU VACC QS2019-20(6MOS UP)/PF 60 MCG/0.5 ML SYRINGE IM ONE (09:00)
[2019-05-12] MEDS ORDERED: Enoxaparin Sodium 40 MG/0.4 ML SYRINGE SC SCH (09:00)
[2019-05-12] MEDS: hydrALAZINE 25 MG TAB PO SCH ×2 (10:11→20:16)
[2019-05-12] MEDS: DOBUTamine 500 mg/250 ml 250 ML IVPB SCH (15:55)
[2019-05-12] MEDS ORDERED: hydrALAZINE 25 MG TAB PO SCH (16:30)
--- NOTE | 2019-05-12 19:17 | PDOC.HOSPP ---
- Subjective Encounter Date: 05/12/19 Encounter Time: 19:05 Subjective: f/u for 3rd degree heart block with dizziness. - Objective Vital Signs & Weight: Vital Signs (12 hours) Temp Pulse Pulse Ox 05/12/19 15:00 98.5 F 05/12/19 10:11 72 05/12/19 08:00 98.0 F 96 Weight Weight 395 lb Most Recent Monitor Data Heart Rate from ECG 84 NIBP 160/84 NIBP BP-Mean 109 Respiration from ECG 17 SpO2 95 I&O: 05/11/19 05/12/19 05/13/19 06:59 06:59 06:59 Intake Total 1043 500 Output Total 750 1525 Balance 293 -1025 Result Diagrams: 05/12/19 03:21 05/12/19 03:21 Additional Labs: Accuchecks 05/12/19 05/12/19 05/12/19 17:00 11:55 06:09 POC Glucose 145 H 184 H 159 H 05/11/19 22:09 POC Glucose 139 H Laboratory Tests 05/11/19 05/11/19 15:30 18:03 Troponin I Less than 0.010 Less than 0.010 Radiology Reviewed by me: Yes (Echo - EF 60-65%, diast dysfxn, mod LAE) EKG Reviewed by me: Yes (Tele - SR) Hospitalist ROS - Medication Medications: Active Medications Generic Name Dose Route Start Last Admin Trade Name Freq PRN Reason Stop Dose Admin Famotidine 20 mg 05/11/19 21:00 05/12/19 08:29 Pepcid PO 20 mg BID OLIMPIA Administration Hydralazine HCl 50 mg 05/11/19 21:00 05/12/19 10:11 Apresoline PO Not Given BID OLIMPIA Dobutamine HCl/Dextrose 250 mls @ 13.438 mls/hr 05/11/19 18:00 05/12/19 15:55 Dobutamine 500 Mg/250 Ml IVPB 250 mls INF OLIMPIA Administration Protocol 2.5 MCG/KG/MIN - Exam General Appearance: NAD, awake alert Eye: PERRL, anicteric sclera ENT: normocephalic atraumatic, no oropharyngeal lesions Neck: supple, symmetric, no JVD, no thyromegaly, no lymphadenopathy Heart: no gallops, no rubs, normal peripheral pulses Respiratory: no wheezes, no ronchi Respiratory - other findings: diminished in bases Gastrointestinal: soft, non-tender, non-distended, normal bowel sounds, no palpable masses Gastrointestinal - other findings: obese Extremities: no cyanosis, no edema Skin: normal turgor, no lesions Neurological: cranial nerve grossly intact, no new deficit Musculoskeletal: normal tone, normal strength Psychiatric: normal affect, A&O x 3 Hosp A/P (1) Complete heart block Code(s): I44.2 - ATRIOVENTRICULAR BLOCK, COMPLETE Status: Acute Plan: Plan for PM placement, Atropine PRN, hold Amiodarone/Coreg (2) Chronic diastolic (congestive) heart failure Code(s): I50.32 - CHRONIC DIASTOLIC (CONGESTIVE) HEART FAILURE Status: Chronic Plan: Compensated, EF 60-65% (3) DM2 (diabetes mellitus, type 2) Status: Chronic Qualifiers: Chronic kidney disease stage: stage 2 (mild) Plan: ISS, Metformin held pending PM placement, serial accuchecks (4) HTN (hypertension) Code(s): I10 - ESSENTIAL (PRIMARY) HYPERTENSION Status: Chronic Qualifiers: Hypertension type: essential hypertension Qualified Code(s): I10 - Essential (primary) hypertension Plan: Continue Hydralazine, serial BP monitoring (5) Morbid obesity with BMI of 45.0-49.9, adult Code(s): E66.01 - MORBID (SEVERE) OBESITY DUE TO EXCESS CALORIES; Z68.42 - BODY MASS INDEX (BMI) 45.0-49.9, ADULT Status: Chronic - Plan health care social worker, DVT proph w/SCDs Continue supportive mgmt Dobutamine gtt Continue Hydralazine Plan for PM placement Madan on hold AM lab: BMP
[2019-05-13 05:42] LABS: Anion Gap 12 mmol/L (10-20); BUN (Urea Nitrogen) 16 mg/dL (8.4-25.7); Calc. Creatinine Clearance 179 mL/min (70-130); Calcium 8.9 mg/dL (7.8-10.44); Carbon Dioxide 28 mmol/L (22-29); Chloride 98 mmol/L (98-107); Estimated GFR-MDRD 68; Glucose 134 mg/dL (70-105); Potassium 3.9 mmol/L (3.5-5.1); Sodium 134 mmol/L (136-145)
[2019-05-13] MEDS ORDERED: Sodium Chloride 0.9% 1,000 ML IV SCH (06:00)
[2019-05-13] MEDS ORDERED: Gentamicin 80 MG/2 ML VIAL ONE (06:42)
[2019-05-13] MEDS ORDERED: CEFAZOLIN 1 GM VIAL ONE (06:42)
[2019-05-13] MEDS ORDERED: Lidocaine 1% (PF) 30 ML VIAL ONE ×3 (07:12→07:53)
[2019-05-13] MEDS ORDERED: Midazolam HCl 2 mg/2 ml Vial ONE (07:25)
[2019-05-13] MEDS ORDERED: Fentanyl 100 MCG/2 ML VIAL ONE (07:25)
[2019-05-13] MEDS ORDERED: Iopamidol 370 76% 50 ML VIAL FS ONE (08:43)
[2019-05-13] MEDS ORDERED: Carvedilol 6.25 MG TAB PO SCH (09:45)
[2019-05-13] MEDS ORDERED: Amiodarone 200 MG TAB PO SCH (09:45)
[2019-05-13 10:49] LABS: Cardiac Risk 5.1 (Less than 4.5)
[2019-05-13] MEDS: Famotidine 20 MG TAB PO SCH ×2 (12:24→20:36)
[2019-05-13] MEDS: hydrALAZINE 25 MG TAB PO SCH ×2 (12:24→20:35)
--- NOTE | 2019-05-13 13:51 | RAD ---
EXAM: Single view of the chest HISTORY: Post cardiac device placement COMPARISON: 05/11/2019 FINDINGS: Single view of the chest shows a normal sized cardiomediastinal silhouette. A right subcla vian pacemaker seen with its leads in the right atrium and ventricle. No pneumothorax is seen. There is no evidence of consolidation, mass, or pleural effusion. Degenerative changes are seen in th e spine. IMPRESSION: Status post pacemaker placement without evidence of complication.
[2019-05-13] MEDS: Cephalexin 250 MG CAP PO SCH ×2 (15:03→20:35)
[2019-05-13] MEDS: Carvedilol 6.25 MG TAB PO SCH (16:11)
--- NOTE | 2019-05-13 17:26 | PDOC.HOSPP ---
- Subjective Encounter Date: 05/13/19 Encounter Time: 17:20 Subjective: f/u for complete heart block s/p PPM today. No new complaints. - Objective Vital Signs & Weight: Vital Signs (12 hours) Temp Pulse Pulse Pulse Resp BP BP 05/13/19 15:01 98.3 F 71 19 05/13/19 14:00 71 80 140/82 05/13/19 13:15 97.9 F 75 20 05/13/19 12:24 81 143/79 H 05/13/19 11:00 98.3 F 05/13/19 06:55 BP BP Pulse Ox 05/13/19 15:01 131/71 94 L 05/13/19 14:00 164/77 H 05/13/19 13:15 122/66 95 05/13/19 12:24 05/13/19 11:00 05/13/19 06:55 95 Weight Weight 395 lb Most Recent Monitor Data Heart Rate from ECG 72 NIBP 132/88 NIBP BP-Mean 102 Respiration from ECG 18 SpO2 94 I&O: 05/12/19 05/13/19 05/14/19 06:59 06:59 06:59 Intake Total 1043 1003 Output Total 750 2650 280 Balance 293 -1647 -280 Result Diagrams: 05/12/19 03:21 05/13/19 05:00 Additional Labs: Accuchecks 05/13/19 05/13/19 05/13/19 16:39 10:23 05:14 POC Glucose 118 H 123 H 140 H 05/12/19 20:22 POC Glucose 108 Laboratory Tests 05/11/19 05/11/19 05/13/19 15:30 18:03 10:14 Troponin I Less than 0.010 Less than 0.010 Triglycerides 150 Cholesterol 197 LDL Cholesterol, Calc 128 HDL Cholesterol 39 Radiology Reviewed by me: Yes (PCXR - PPM in place, no pneumothorax) EKG Reviewed by me: Yes (Tele - V-pacing in 's) Hospitalist ROS - Medication Medications: Active Medications Generic Name Dose Route Start Last Admin Trade Name Freq PRN Reason Stop Dose Admin Carvedilol 6.25 mg 05/13/19 17:00 05/13/19 16:11 Coreg PO 6.25 mg BID-WM OLIMPIA Administration Cephalexin 250 mg 05/13/19 15:00 05/13/19 15:03 Keflex PO 05/23/19 15:01 250 mg TID OLIMPIA Administration Famotidine 20 mg 05/11/19 21:00 05/13/19 12:24 Pepcid PO 20 mg BID OLIMPIA Administration Hydralazine HCl 50 mg 05/11/19 21:00 05/13/19 12:24 Apresoline PO 50 mg BID OLIMPIA Administration Sodium Chloride 10 ml 05/12/19 21:00 05/13/19 12:14 Flush - Normal Saline IVF Not Given Q12HR OLIMPIA - Exam General Appearance: NAD, awake alert Eye: PERRL, anicteric sclera ENT: normocephalic atraumatic, no oropharyngeal lesions Neck: supple, symmetric, no JVD, no thyromegaly Heart: RRR, no gallops, no rubs, normal peripheral pulses Heart - other findings: S1, S2 Respiratory: CTAB, no wheezes, no rales, no ronchi, normal chest expansion Gastrointestinal: soft, non-tender, non-distended, normal bowel sounds, no palpable masses Gastrointestinal - other findings: obese Extremities: no cyanosis, 2+ LE edema Skin: normal turgor, no lesions Neurological: cranial nerve grossly intact, no new deficit Musculoskeletal: normal tone, generalized weakness Psychiatric: normal affect, A&O x 3 Hosp A/P (1) Complete heart block Code(s): I44.2 - ATRIOVENTRICULAR BLOCK, COMPLETE Status: Acute Plan: s/p PPM 05/13/19, continue Coreg/Amiodarone (2) Chronic diastolic (congestive) heart failure Code(s): I50.32 - CHRONIC DIASTOLIC (CONGESTIVE) HEART FAILURE Status: Chronic Plan: Compensated, EF 60-65% (3) DM2 (diabetes mellitus, type 2) Status: Chronic Qualifiers: Chronic kidney disease stage: stage 2 (mild) (4) HTN (hypertension) Code(s): I10 - ESSENTIAL (PRIMARY) HYPERTENSION Status: Chronic Qualifiers: Hypertension type: essential hypertension Qualified Code(s): I10 - Essential (primary) hypertension (5) Morbid obesity with BMI of 45.0-49.9, adult Code(s): E66.01 - MORBID (SEVERE) OBESITY DUE TO EXCESS CALORIES; Z68.42 - BODY MASS INDEX (BMI) 45.0-49.9, ADULT Status: Chronic - Plan continue antibiotics, social worker psychiatric, out of bed/ambulate, DVT proph w/SCDs Continue supportive mgmt Resume Amiodarone/Coreg Continue Hydralazine s/p PPM placement today Eliquis resuming Likely home in am
[2019-05-13] MEDS ORDERED: Rosuvastatin 20 MG TAB PO SCH (21:00)
[2019-05-14 08:07] VITALS: TEMP 97.9
[2019-05-14] MEDS: Carvedilol 6.25 MG TAB PO SCH (08:10)
[2019-05-14] MEDS: Cephalexin 250 MG CAP PO SCH (08:10)
[2019-05-14] MEDS: Famotidine 20 MG TAB PO SCH (08:10)
[2019-05-14] MEDS: hydrALAZINE 25 MG TAB PO SCH (08:10)
[2019-05-14] MEDS ORDERED: Amiodarone 200 MG TAB PO SCH (09:00)
[2019-05-14 10:36] VITALS: BP 147/80
--- NOTE | 2019-05-14 12:00 | DIS ---
DATE OF ADMISSION: 05/11/2019 DATE OF DISCHARGE: 05/14/2019 DISCHARGE DIAGNOSES: 1. Complete heart block, status post pacemaker placement on 05/13/2019. 2. Chronic diastolic heart failure with ejection fraction 60% to 65%, compensated. 3. Diabetes mellitus, type 2, stable. 4. Hypertension stable. 5. Morbid obesity. CONSULTATIONS: Dr. Gustabo Holland with Cardiology Service. PERTINENT LABORATORY AND X-RAY FINDINGS: Troponin I negative x3. Total cholesterol 197, triglycerides 150, HDL 39, and LDL 128. CBC within normal limits. 2D transthoracic echocardiogram dated 05/12/2019, showed ejection fraction of 60% to 65%. Diastolic dysfunction noted. Moderate left atrial enlargement. HOSPITAL COURSE: The patient was admitted after presenting with generalized weakness and dizziness. The patient underwent evaluation including EKG evaluation showing complete heart block. The patient was noted with 4.5 second pauses and placed on the telemetry unit. The patient was evaluated by the Cardiology Service, undergoing a pacemaker placement on 05/13/2019 without complications. The patient underwent 2D transthoracic echocardiogram evaluation showing overall improvement in ejection fraction increasing from the 40% to 45% range. The patient remained clinically stable postoperatively with EKG showing sinus mechanism with intermittent pacing. Overall, the patient remained clinically stable, tolerating regular oral intake with stable vital signs. I have examined the patient at the time of discharge and discussed followup instructions. The patient verbalized understanding and in agreement, and ready for discharge on 05/14/2019. DISCHARGE MEDICATIONS: 1. Amiodarone 200 mg p.o. daily. 2. Metformin 500 mg p.o. daily. 3. Eliquis 5 mg p.o. b.i.d., resume on 05/17/2019. 4. Coreg 6.25 mg p.o. b.i.d. 5. Keflex 250 mg p.o. t.i.d. x7 days. 6. Hydralazine 50 mg p.o. b.i.d. 7. Crestor 20 mg p.o. at bedtime. FOLLOWUP: The patient will follow up with his primary care provider, Payton Redd, within 7 days of discharge. The patient will follow up with Dr. Gustabo Holland within 10 days of discharge. CONDITION ON DISCHARGE: Stable. ACTIVITY: Ad-juanito. DIET: Heart healthy and ADA. CODE STATUS: Full. DISPOSITION: Home on 05/14/2019. TIME SPENT: Total time in preparing and coordinating discharge, 32 minutes. Job ID: [id number]
--- NOTE | 2019-05-14 12:13 | EKG ---
Test Reason : Blood Pressure : / mmHG Vent. Rate : 069 BPM Atrial Rate : 069 BPM P-R Int : 176 ms QRS Dur : 100 ms QT Int : 400 ms P-R-T Axes : 020 065 063 degrees QTc Int : 428 ms Normal sinus rhythm Normal ECG When compared with ECG of 21-NOV-2018 09:48, No significant change was found Confirmed by TAN RODRÍGUEZ, DR. Burt ([id number]) on 05/14/2019 12:13:16 PM Referred By: NONA Confirmed By:DR. Carmel MADDOX MD
--- NOTE | 2019-05-14 20:09 | CCL ---
PERMANENT PACEMAKER INSERTION USING FLUOROSCOPY: 05/14/19 INDICATION: Complete heart block, near syncope. PROCEDURE: Dual chamber pacemaker placement. DESCRIPTION OF PROCEDURE: The patient was brought to the [facility]. He received total of 100 mg of fentanyl during the case as well as 2 mg of versed during the case for continuous moderate yuri tion for two hours. He had appropriate monitoring. The right subclavian area was prepped and draped ( patient requested pacemaker on the right side due to being left handed and a yola. 1% Lidocaine was infiltrated. A venogram was performed for location of the subclavian vein. Pacemaker pocket was man ufactured. J-wire was placed to the left subclavian vein. The remainder of the pacemaker pocket was m anufactured using electrocautery for hemostasis. Antibiotic solution soaked gauze was placed into the pocket. A 7-Par[place] sheath was placed over the wire followed by a 9-[place] sheath. The ventricular le ad was inserted and screwed into the RV ventricular apex. The 9-[place] sheath was peeled away. The sa me J-wire was used for the 7 [place] sheath and the atrial lead was inserted and screwed into the righ t atrium. Right ventricular lead - R-wave 8.2, impedance 879, threshold 0.5 volts. Right atrial lead - P-wave 3.1, impedance 713, threshold 0.7 volts. Both leads were secured in place with two sutures of 0 silk . The tabs were removed and suture tie-downs. Both leads were secured in place with two sutures of 0 Silk. The antibiotic solution soaked gauze was removed from the pocket and this was irrigated with c opious amounts of antibiotic solution. The leads were attached to the pacemaker generator and this wa s placed into the pocket and secured in place with one suture of 0 silk. The incision was then close d using two layers of running 3-0 Vicryl, one layer of running 4-0 Vicryl. Dermabond was placed on t he incision. The patient tolerated the procedure well.
== END 2019-05-14 11:31 | disposition home or self-care (01) | DRG 243 ==
LOC: 2SE 14:22 → OBSVTOIN 14:22 → CCU 16:50 → 2NO 05-13 13:30
PROVIDERS: ADMIT Internal Medicine; ATTEND Internal Medicine
PROC: 0JH606Z Insertion of Pacemaker, Dual Chamber into Chest Subcutaneous Tissue and Fascia, Open Approach (ICD-10-PCS; principal; 2019-05-13)
PROC: 02HK3JZ Insertion of Pacemaker Lead into Right Ventricle, Percutaneous Approach (ICD-10-PCS; 2019-05-13)
PROC: 02H63JZ Insertion of Pacemaker Lead into Right Atrium, Percutaneous Approach (ICD-10-PCS; 2019-05-13)
DX: I44.2 Atrioventricular block, complete (principal); I50.32 Chronic diastolic (congestive) heart failure; Z68.43 Body mass index [BMI] 50.0-59.9, adult; I11.0 Hypertensive heart disease with heart failure; E11.9 Type 2 diabetes mellitus without complications; E66.01 Morbid (severe) obesity due to excess calories; I48.91 Unspecified atrial fibrillation; G47.33 Obstructive sleep apnea (adult) (pediatric); I49.5 Sick sinus syndrome; F17.210 Nicotine dependence, cigarettes, uncomplicated; E78.00 Pure hypercholesterolemia, unspecified; Z79.01 Long term (current) use of anticoagulants; Z88.6 Allergy status to analgesic agent
CPT/HCPCS: 33208; 36005; 36415; 36416; 71045; 75820; 80048; 80053; 80061; 85025; 85610; 93005; 93010; 93306; 93798; 99152; 99153; C1785; C1898; J0690; J1250; J1580; J1650; J2001; J2250; J3010; Q9967

== ENCOUNTER 2019-05-24 09:52 | Inpatient (IN) | payer BC ==
[2019-05-24 10:24] LABS: #Basophils 0.1 thou/uL (0.0-0.2); #Eosinphils 0.3 thou/uL (0.0-0.7); #Lymphocytes 1.8 thou/uL (1.20-3.40); #Monocytes 0.8 thou/uL (0.11-0.59); #Neutrophils 5.9 thou/uL (1.40-6.50); %Basophils 0.9 % (0.0-1.0); %Eosinophils 3.1 % (0.0-10.0); %Lymphocytes 19.9 % (21.0-51.0); %Monocytes 9.2 % (0.0-10.0); %Neutrophils 66.8 % (42.0-75.0); Hemoglobin 16.8 g/dL (14.0-18.0); Mean Corpuscular Hemoglobin 30.5 pg (27.0-31.0); Mean Corpuscular Volume 92.3 fL (78.0-98.0); Mean Platelet Volume 8.5 fL (7.4-10.4); Platelet Count 155 thou/uL (130-400); RBC Distribution Width 12.7 % (11.5-14.5); Red Blood Cell (RBC) Count 5.51 mill/uL (4.70-6.10); White Blood Cell (WBC) Count 8.8 thou/uL (4.8-10.8)
[2019-05-24 10:40] LABS: ALT (SGPT) 18 U/L (8-55); AST (SGOT) 12 U/L (5-34); Albumin 4.1 g/dL (3.5-5.0); Alkaline Phosphatase 50 U/L (40-110); Anion Gap 13 mmol/L (10-20); BUN (Urea Nitrogen) 18 mg/dL (8.4-25.7); Bilirubin, Total 0.4 mg/dL (0.2-1.2); Calc. Creatinine Clearance 0 mL/min (70-130); Calcium 9.4 mg/dL (7.8-10.44); Carbon Dioxide 25 mmol/L (22-29); Chloride 103 mmol/L (98-107); Estimated GFR-MDRD 68; Globulin 2.9 g/dL (2.4-3.5); Glucose 216 mg/dL (70-105); Magnesium 1.7 mg/dL (1.6-2.6); Potassium 4.6 mmol/L (3.5-5.1); Sodium 136 mmol/L (136-145)
--- NOTE | 2019-05-24 10:46 | RAD ---
PORTABLE CHEST ONE VIEW: HISTORY: Possible pacemaker malfunction. Chest fluttering. COMPARISON: 05/13/19 FINDINGS: The lungs appear clear. No infiltrate or vascular congestion. The heart size is upper normal and stab le. The dual-lead pacemaker shows evidence of lead dislodgement. The atrial lead now resides in the upper SVC region and the ventricular lead resides within the atrium. IMPRESSION: There has been dislodgement of the dual-lead pacemaker device with both leads now showing dislodgemen t since the prior study. Findings were relayed to Shan, the charge nurse in the ER, at the time of this dictation. CODE CR POS: AGNorbert
[2019-05-24 11:01] LABS: CKMB 3.3 ng/mL (0-6.6)
[2019-05-24] MEDS ORDERED: DOBUTamine 500 mg/250 ml 250 ML ONE (11:09)
[2019-05-24] MEDS ORDERED: DOBUTamine 500 mg/250 ml 250 ML IVPB SCH (11:15)
[2019-05-24] MEDS ORDERED: Acetaminophen 325 MG TAB PO PRN (12:28)
[2019-05-24] MEDS ORDERED: Sodium Chloride 0.9% 1,000 ML IV SCH (12:28)
[2019-05-24] MEDS ORDERED: Ondansetron ODT 4 MG TAB SL PRN (12:28)
[2019-05-24] MEDS ORDERED: Ondansetron PF 4 MG/2 ML Vial IVP PRN (12:28)
[2019-05-24 13:08] VITALS: BMI 49.8
[2019-05-24] MEDS ORDERED: [UNRECOGNIZED DRUG - REMARK] FS SCH (14:45)
--- NOTE | 2019-05-24 18:26 | HP ---
COMPLAINT: Concern for pacemaker malfunction. HISTORY OF PRESENT ILLNESS: The patient is a 58-year-old male with past medical history of atrial fibrillation, heart failure with reduced ejection fraction, hypertension, diabetes mellitus, chronic kidney disease, and complete heart block, status post pacemaker placement 3 weeks ago. The patient presented to the hospital with complaints of right upper chest pain and twitching of his chest wall muscles that started earlier today. The patient was trying to return to his normal activities after his pacemaker was placed 3 weeks ago. He was limiting movement on his upper arm due to the pacemaker placement, but yesterday he tried to reach out with his right upper extremity and felt a sharp pain around the pacemaker area and in his chest that lasted only for few seconds. Today, the patient was noticing twitching of his upper abdominal and chest wall muscles and he was also feeling dizzy, which prompted him to present to the emergency department. In the ER, the patient was found to be in first degree heart block and his x-ray revealed dislodgement of both pacemaker leads. REVIEW OF SYSTEMS: Negative except as noted in HPI. PAST MEDICAL HISTORY: Systolic heart failure, atrial fibrillation, complete heart block, hypertension, osteoarthritis, hyperlipidemia, chronic kidney disease. PAST SURGICAL HISTORY: Back surgery, knee surgery, and pacemaker placement. FAMILY HISTORY: Negative for his current presentation. SOCIAL HISTORY: The patient denies alcohol use, illicit drug use, but endorses current half pack a day smoking. ALLERGIES: THE PATIENT IS ALLERGIC TO CODEINE. PHYSICAL EXAMINATION: GENERAL: The patient is alert and oriented x3. HEENT: His head is normocephalic and atraumatic. Extraocular muscles are intact. NECK: Supple without JVD. CHEST: Clear auscultation bilaterally. CARDIOVASCULAR: Normal S1, S2. No murmurs, rubs, or gallops. ABDOMEN: Soft, nontender, nondistended. EXTREMITIES: No edema. NEUROLOGICAL: Unremarkable. ASSESSMENT: This is a patient with history of complete heart block, status post pacemaker placement, who presented to the emergency department today with a pacemaker lead dysfunction. He is currently in first-degree heart block and complaining of dizziness. PLAN: 1. Cardiology service consulted and they recommended to admit the patient to the CCU and starting dobutamine drip at 2.5 mcg/kg/hour. His beta-blockers will be placed on hold. 2. We will continue to monitor him closely and await further recommendations from Cardiology. Job ID: [id number]
[2019-05-24] MEDS: Rosuvastatin 20 MG TAB PO SCH (21:07)
[2019-05-24] MEDS: hydrALAZINE 25 MG TAB PO SCH (21:08)
[2019-05-25 04:39] LABS: #Basophils 0.1 thou/uL (0.0-0.2); #Eosinphils 0.4 thou/uL (0.0-0.7); #Lymphocytes 2.5 thou/uL (1.20-3.40); #Neutrophils 5.4 thou/uL (1.40-6.50); %Basophils 0.7 % (0.0-1.0); %Eosinophils 4.6 % (0.0-10.0); %Lymphocytes 26.4 % (21.0-51.0); %Monocytes 10.8 % (0.0-10.0); %Neutrophils 57.5 % (42.0-75.0); Hemoglobin 15.7 g/dL (14.0-18.0); Mean Corpuscular HGB CONC 34.1 g/dL (32.0-36.0); Mean Corpuscular Hemoglobin 31.2 pg (27.0-31.0); Mean Corpuscular Volume 91.7 fL (78.0-98.0); Mean Platelet Volume 8.7 fL (7.4-10.4); Platelet Count 136 thou/uL (130-400); RBC Distribution Width 12.6 % (11.5-14.5); Red Blood Cell (RBC) Count 5.03 mill/uL (4.70-6.10); White Blood Cell (WBC) Count 9.4 thou/uL (4.8-10.8)
[2019-05-25 04:57] LABS: Anion Gap 15 mmol/L (10-20); BUN (Urea Nitrogen) 16 mg/dL (8.4-25.7); Calc. Creatinine Clearance 164 mL/min (70-130); Calcium 8.9 mg/dL (7.8-10.44); Carbon Dioxide 24 mmol/L (22-29); Chloride 101 mmol/L (98-107); Estimated GFR-MDRD 61; Glucose 156 mg/dL (70-105); Potassium 4.4 mmol/L (3.5-5.1); Sodium 136 mmol/L (136-145)
[2019-05-25] MEDS ORDERED: HumaLOG 300 UNITS/3 ML VIAL SC PRN ×2 (07:42)
[2019-05-25] MEDS ORDERED: Dextrose 5% in Water 1,000 ML IV PRN (07:42)
[2019-05-25] MEDS ORDERED: Dextrose 50% Abboject 50 ML SYRINGE SLOW IVP PRN (07:42)
[2019-05-25] MEDS ORDERED: Heparin 25,000 units/D5W 500 ML IVPB SCH (07:45)
[2019-05-25] MEDS ORDERED: Heparin 10,000 UNITS/ 10 ML VIAL SLOW IVP SCH (07:45)
[2019-05-25] MEDS ORDERED: Acetaminophen 500 MG TAB PO PRN (07:55)
--- NOTE | 2019-05-25 07:56 | CON ---
DATE OF CONSULTATION: HISTORY OF PRESENT ILLNESS: Jose Luis Ortiz is a 58-year-old white male who I have followed for many years and recently underwent pacemaker placement. He was initially admitted here in 10/2004 with an episode of atrial fibrillation. He had normal noninvasive studies, but continued to have chest discomfort, underwent cardiac catheterization. There was mild plaquing of the mid LAD. He was seen by Dr. Leung at that time. He was discharged on digoxin 0.25 daily, Cardizem 240 daily, and aspirin 325 daily. He stated that he weaned himself off his medications and did not have any further problems. In 09/2017, he saw Dr. Tolbert. He underwent stress testing as well as echocardiography and the patient states that those were normal. He did not have any further problems until October 2018. He complained of 2 to 3 weeks increased dyspnea where he could do less and less work. He developed peripheral edema. He denies any chest discomfort or palpitations. When he started having increased shortness of breath, he came to the emergency room. He was found to have a heart rate in the 130s and was in atrial fibrillation. Diastolic pressures were in the 110-115 range. He was placed on Cardizem drip, given Lovenox 1 mg/kg b.i.d. He also was given digoxin 0.25 IV twice for rate control. Echocardiography revealed ejection fraction of 40% to 45%. It is felt that he had acute systolic heart failure. He also had moderate mitral regurgitation and mild aortic stenosis with a mean gradient of 12 mm, peak gradient of 34 mm. With left ventricular dysfunction, he was loaded with amiodarone and underwent transesophageal echo by Dr. Guthrie, which revealed mild decrease in left ventricular systolic function, oqbr-vl-xndemyha aortic stenosis, iqzyvklv-pz-zwiotq mitral regurgitation. He had no thrombus and this was then followed by electrical cardioversion. With 200 joules, he remained in atrial fibrillation. With 300 joules, he converted to sinus rhythm. He was placed on tapering doses of amiodarone. He was seen in the office on 12/18/2018. He continued to remain in normal sinus rhythm. He was started on Entresto 1/2 tablet b.i.d., however, he complained of possible throat swelling with that and that was discontinued. Also at times, his blood pressure would be low and his dose of carvedilol was reduced to 3.125 b.i.d. He was to come to the office for repeat echocardiogram; however, he presented on 05/11/19, complaining of episodes of increased weakness, feeling of tingling all over, as well as dizziness. His vision would gradually blacken. He did not have any syncope. While on telemetry, he had episodes of complete heart block with P-waves and no QRS for over 6 seconds. He did not lose consciousness with this, but stated this is what he was feeling at home. He was transferred to the CCU. He denies any chest discomfort or any recurrence of shortness of breath like he had prior to electrical cardioversion for his atrial fibrillation. Repeat echocardiogram revealed ejection fraction of 60% to 65%, evidence for diastolic dysfunction, moderate left atrial enlargement, mild mitral regurgitation, mitral annular calcification, aortic valvular sclerosis, and mild tricuspid regurgitation. He was on Eliquis and this needed to be held for 48 hours and then he underwent placement of a dual-chamber pacemaker. He was very concerned about having this put in on the left side because he is left handed and is a yola. Therefore, we followed his wishes and this was placed via the right subclavian vein. He did well and was discharged the day after. Five days after that, Eliquis was resumed. He states he has been feeling very well. He has not had any further episodes of the feeling like he would black out. Then, yesterday while sitting , he suddenly had an itch on his left side of his back near his left axilla. He reached suddenly over to scratch this area with his right arm and had immediate pain in his chest. The pain was not pleuritic and felt very sharp like someone stabbed him with a knife. After that, he would notice episodes of intermittent muscle contractions of his chest. Today, he felt very weak, was somewhat diaphoretic, and decided to come in. On chest x-ray, he was found to have lead dislodgement. PAST MEDICAL HISTORY: 1. Hypertension. 2. Diabetes. 3. Hypercholesterolemia. 4. History of obstructive sleep apnea, on CPAP. 5. Chronic back pain. 6. History of atrial fibrillation with medical conversion in 2004 and in 2018 requiring electrical cardioversion. 7. Plaque in the mid LAD on catheterization in 2004. 8. Obesity. OPERATIONS: 1. Pacemaker placement. 2. Bilateral knee replacement. 3. Appendectomy. 4. Back surgery. MEDICATIONS: 1. Eliquis 5 mg b.i.d. 2. Carvedilol 6.25 b.i.d. 3. Amiodarone 200 mg daily. 4. Crestor 20 mg daily. 5. Metformin 500 mg daily. 6. Hydralazine 50 mg b.i.d. ALLERGIES: CODEINE CAUSES NAUSEA. SOCIAL HISTORY: Smoked one pack per day, but is down to 5 cigarettes per day. Rarely drinks. He is a trevizo and rancher. FAMILY HISTORY: Negative for coronary artery disease, although his mother apparently did have heart valve surgery. REVIEW OF SYSTEMS: Otherwise unremarkable. PHYSICAL EXAMINATION: VITAL SIGNS: Blood pressure 165/69 and pulse of 76. HEENT: PERRL. NECK: Supple. CHEST: Clear. CARDIAC: S1 and S2 are normal without any S3 or S4. There is a 1/6 systolic murmur along the left sternal border. Carotid upstrokes normal without bruits. ABDOMEN: Quite obese. Normal bowel sounds. No tenderness. EXTREMITIES: Trace pretibial edema. NEUROLOGIC: Grossly intact. SKIN: Warm and dry. LABORATORY DATA: EKG, probable loss of capture. Chest x-ray shows that the atrial lead is almost into the pacemaker pocket and the ventricular lead is just barely in the ventricle. The pacemaker was interrogated by [employer] and it was found that the ventricular lead would continue to pace, so he is programmed to VVI-R at 30 per minute. It is of note that he ventricularly paces 13.4% since pacemaker has been inserted. CBC is unremarkable. Sodium 136, potassium 4.6, chloride 103, carbon dioxide 25, BUN 18, creatinine 1.11, and glucose 216. Troponin-I 0.037. IMPRESSION: 1. Atrial and ventricular lead dislodgement after sudden movement of his right arm stretching to scratch the left side of his body. The ventricular lead continues to pace adequately; however, the atrial lead has loss of capture and caused muscle stimulation. The patient was programmed to VVI rate of 30/minute, and he no longer has any muscle stimulation. 2. Status post pacemaker placement for complete heart block on 05/13/2019. 3. Ejection fraction of 40% to 45% with atrial fibrillation, improving to 60% to 65% after he was cardioverted. 4. Left anterior descending plaque on catheterization in 2004. 5. Hypertension. 6. Hypercholesterolemia. 7. Elevated cholesterol with Crestor started on last admission (he stated he had glucose elevation on Atorvastatin and stopped it). 8. Smoker. 9. Obesity. 10. Obstructive sleep apnea. RECOMMENDATIONS: The patient has pacemaker lead displacement and this will need to be repositioned. However, he currently is on Eliquis. This will be discontinued, and 48 hours later, he will undergo lead revision. Risks were discussed with the patient including , infection, bleeding, blood clot formation, pneumothorax , cardiac tamponade, etc. He understands and is agreeable to proceed. We also discussed the need for limited use of his right arm after pacemaker is repositioned. Job ID: [id number] MTDD
[2019-05-25] MEDS: Carvedilol 6.25 MG TAB PO SCH ×2 (08:57→16:10)
[2019-05-25] MEDS: hydrALAZINE 25 MG TAB PO SCH ×2 (08:58→20:24)
[2019-05-25] MEDS: Amiodarone 200 MG TAB PO SCH (08:58)
[2019-05-25] MEDS: metFORMIN 500 MG TAB PO SCH (08:58)
--- NOTE | 2019-05-25 13:45 | PDOC.HOSPP ---
- Subjective Subjective: Seen and examined. Sitting up in the chair, breathing comfortably on room air. Denies chest pain. No shortness of breath. Or his CPAP at night. He is off Eliquis in anticipation of pacemaker adjustment tomorrow. Cardiology on the case. Time was given for questions, all answered in detail. - Objective Vital Signs & Weight: Vital Signs (12 hours) Temp Pulse Resp BP BP Pulse Ox 05/25/19 11:31 97.6 F 62 18 123/61 94 L 05/25/19 08:54 93 L 05/25/19 07:26 98.2 F 70 20 133/78 93 L 05/25/19 04:00 98.0 F 65 16 110/62 96 Weight Weight 393 lb 11.929 oz Most Recent Monitor Data Heart Rate from ECG 74 NIBP 134/74 NIBP BP-Mean 94 Respiration from ECG 11 SpO2 98 I&O: 05/24/19 05/25/19 05/26/19 06:59 06:59 06:59 Intake Total 265.7 Output Total 475 Balance -209.3 Result Diagrams: 05/25/19 04:10 05/25/19 04:10 Additional Labs: Accuchecks 05/25/19 05/24/19 10:56 20:02 POC Glucose 156 H 163 H Radiology Reviewed by me: Yes Hospitalist ROS - Review of Systems All other systems reviewed; all pertinent +/- noted in HPI/Subj - Medication Medications: Active Medications Generic Name Dose Route Start Last Admin Trade Name Freq PRN Reason Stop Dose Admin Acetaminophen 1,000 mg 05/25/19 07:55 05/25/19 08:58 Tylenol PO 1,000 mg Q6H PRN Administration Moderate to Severe Pain (6-10) Amiodarone HCl 200 mg 05/25/19 09:00 05/25/19 08:58 Cordarone PO 200 mg DAILY OLIMPIA Administration Carvedilol 6.25 mg 05/25/19 08:00 05/25/19 08:57 Coreg PO 6.25 mg BID-WM OLIMPIA Administration Hydralazine HCl 50 mg 05/24/19 21:00 05/25/19 08:58 Apresoline PO Not Given BID OLIMPIA Metformin HCl 500 mg 05/25/19 08:00 05/25/19 08:58 Glucophage PO 500 mg QAM-WM OLIMPIA Administration Rosuvastatin Calcium 20 mg 05/24/19 21:00 05/24/19 21:07 Crestor PO 20 mg HS OLIMPIA Administration - Exam General Appearance: NAD, awake alert Eye: anicteric sclera ENT: normocephalic atraumatic, moist mucosa Neck: supple, symmetric, no lymphadenopathy Heart: no murmur, no gallops, no rubs, irregular Respiratory: CTAB, no wheezes, no rales, no ronchi, normal chest expansion Gastrointestinal: soft, non-tender, non-distended, no guarding, no rigidity Extremities: no edema Skin: no lesions, no rashes Neurological: cranial nerve grossly intact, no focal deficits Psychiatric: normal affect, normal behavior, A&O x 3 Hosp A/P (1) Pacemaker complications Code(s): T82.9XXA - UNSP COMP OF CARDIAC AND VASCULAR PROSTH DEV/GRFT, INIT Status: Acute (2) Acute systolic (congestive) heart failure Code(s): I50.21 - ACUTE SYSTOLIC (CONGESTIVE) HEART FAILURE Status: Acute (3) Atrial fibrillation with RVR Code(s): I48.91 - UNSPECIFIED ATRIAL FIBRILLATION Status: Acute (4) Complete heart block Code(s): I44.2 - ATRIOVENTRICULAR BLOCK, COMPLETE Status: Acute (5) Chronic diastolic (congestive) heart failure Code(s): I50.32 - CHRONIC DIASTOLIC (CONGESTIVE) HEART FAILURE Status: Chronic (6) DM2 (diabetes mellitus, type 2) Status: Chronic (7) HTN (hypertension) Code(s): I10 - ESSENTIAL (PRIMARY) HYPERTENSION Status: Chronic Qualifiers: (8) Morbid obesity with BMI of 45.0-49.9, adult Code(s): E66.01 - MORBID (SEVERE) OBESITY DUE TO EXCESS CALORIES; Z68.42 - BODY MASS INDEX (BMI) 45.0-49.9, ADULT Status: Chronic (9) LOUANN (obstructive sleep apnea) Code(s): G47.33 - OBSTRUCTIVE SLEEP APNEA (ADULT) (PEDIATRIC) Status: Chronic (10) Tobacco abuse Code(s): Z72.0 - TOBACCO USE Status: Chronic - Plan Plan: medical unit with telemetry cardiology consultation, recommendations appreciated permanent pacemaker readjustment tomorrow hold Eliquis no anticoagulation at this time, per cardiology cardiomyopathy regimen blood sugar control blood pressure control continue other home medications as able GI prophylaxis DVT prophylaxis
[2019-05-25] MEDS: Rosuvastatin 20 MG TAB PO SCH (20:23)
[2019-05-26] MEDS ORDERED: CEFAZOLIN 1 GM VIAL ONE (06:44)
[2019-05-26] MEDS ORDERED: Gentamicin 80 MG/2 ML VIAL ONE (06:44)
[2019-05-26] MEDS ORDERED: Midazolam HCl 2 mg/2 ml Vial ONE (11:23)
[2019-05-26] MEDS ORDERED: Fentanyl 100 MCG/2 ML VIAL ONE (11:23)
[2019-05-26] MEDS ORDERED: Lidocaine 1% (PF) 30 ML VIAL ONE ×2 (11:33→11:38)
[2019-05-26] MEDS ORDERED: Vancomycin HCl 500 MG VIAL ONE (11:33)
--- NOTE | 2019-05-26 13:17 | PDOC.HOSPP ---
- Subjective Subjective: Seen and examined this a.m. Patient has episodes of chest discomfort is own electric shock is going through his chest, from dislodged pacemaker wire. No shortness of breath, breathing comfortably on room air. Pending revision of pacemaker wire per cardiology. Time was given for questions, all answered in detail. - Objective Vital Signs & Weight: Vital Signs (12 hours) Temp Pulse Resp BP BP Pulse Ox 05/26/19 07:05 97.6 F 63 16 132/71 95 05/26/19 04:00 97.5 F L 63 16 122/54 L 94 L Weight Weight 393 lb 9.6 oz Most Recent Monitor Data Heart Rate from ECG 74 NIBP 134/74 NIBP BP-Mean 94 Respiration from ECG 11 SpO2 98 I&O: 05/25/19 05/26/19 05/27/19 06:59 06:59 06:59 Intake Total 265.7 1197 Output Total 475 1225 Balance -209.3 -28 Result Diagrams: 05/25/19 04:10 05/25/19 04:10 Additional Labs: Accuchecks 05/26/19 05/25/19 05/25/19 05:21 20:48 16:47 POC Glucose 149 H 119 H 115 H Radiology Reviewed by me: Yes Hospitalist ROS - Review of Systems All other systems reviewed; all pertinent +/- noted in HPI/Subj - Medication Medications: Active Medications Generic Name Dose Route Start Last Admin Trade Name Freq PRN Reason Stop Dose Admin Acetaminophen 1,000 mg 05/25/19 07:55 05/25/19 08:58 Tylenol PO 1,000 mg Q6H PRN Administration Moderate to Severe Pain (6-10) Amiodarone HCl 200 mg 05/25/19 09:00 05/25/19 08:58 Cordarone PO 200 mg DAILY OLIMPIA Administration Carvedilol 6.25 mg 05/25/19 08:00 05/25/19 16:10 Coreg PO 6.25 mg BID-WM OLIMPIA Administration Hydralazine HCl 50 mg 05/24/19 21:00 05/25/19 20:24 Apresoline PO Not Given BID OLIMPIA Metformin HCl 500 mg 05/25/19 08:00 05/25/19 08:58 Glucophage PO 500 mg QAM-WM OLIMPIA Administration Rosuvastatin Calcium 20 mg 05/24/19 21:00 05/25/19 20:23 Crestor PO 20 mg HS OLIMPIA Administration - Exam General Appearance: NAD, awake alert Eye: PERRL, anicteric sclera ENT: normocephalic atraumatic, moist mucosa Neck: supple, symmetric Heart: no murmur, no gallops, no rubs Respiratory: CTAB, no wheezes, no rales, no ronchi, no tachypnea Gastrointestinal: soft, non-tender, non-distended, no guarding, no rigidity Extremities: 1+ LE edema Skin: no lesions, no rashes Neurological: cranial nerve grossly intact, no focal deficits Musculoskeletal: generalized weakness Psychiatric: A&O x 3 Hosp A/P (1) Pacemaker complications Code(s): T82.9XXA - UNSP COMP OF CARDIAC AND VASCULAR PROSTH DEV/GRFT, INIT Status: Acute (2) Acute systolic (congestive) heart failure Code(s): I50.21 - ACUTE SYSTOLIC (CONGESTIVE) HEART FAILURE Status: Acute (3) Atrial fibrillation with RVR Code(s): I48.91 - UNSPECIFIED ATRIAL FIBRILLATION Status: Acute (4) Complete heart block Code(s): I44.2 - ATRIOVENTRICULAR BLOCK, COMPLETE Status: Acute (5) Chronic diastolic (congestive) heart failure Code(s): I50.32 - CHRONIC DIASTOLIC (CONGESTIVE) HEART FAILURE Status: Chronic (6) DM2 (diabetes mellitus, type 2) Status: Chronic (7) HTN (hypertension) Code(s): I10 - ESSENTIAL (PRIMARY) HYPERTENSION Status: Chronic Qualifiers: (8) Morbid obesity with BMI of 45.0-49.9, adult Code(s): E66.01 - MORBID (SEVERE) OBESITY DUE TO EXCESS CALORIES; Z68.42 - BODY MASS INDEX (BMI) 45.0-49.9, ADULT Status: Chronic (9) LOUANN (obstructive sleep apnea) Code(s): G47.33 - OBSTRUCTIVE SLEEP APNEA (ADULT) (PEDIATRIC) Status: Chronic (10) Tobacco abuse Code(s): Z72.0 - TOBACCO USE Status: Chronic - Plan Plan: medical unit with telemetry cardiology consultation, recommendations appreciated permanent pacemaker readjustment today hold Eliquis no anticoagulation at this time, per cardiology cardiomyopathy regimen blood sugar control blood pressure control continue other home medications as able GI prophylaxis DVT prophylaxis
[2019-05-26] MEDS: hydrALAZINE 25 MG TAB PO SCH ×2 (13:43→20:14)
[2019-05-26] MEDS: metFORMIN 500 MG TAB PO SCH (13:44)
[2019-05-26] MEDS: Amiodarone 200 MG TAB PO SCH (13:46)
[2019-05-26] MEDS: Carvedilol 6.25 MG TAB PO SCH (13:46)
--- NOTE | 2019-05-26 16:52 | CCL ---
REPOSITIONING OF ATRIAL AND VENTRICULAR PACEMAKER LEADS 05/26/19 INDICATION: Lead dislodgement. DESCRIPTION OF PROCEDURE: The patient was brought to the [facility] and the right subclavian a walter was prepped and draped. The patient was given versed 1 mg and fentanyl 25 mg and fentanyl 25 mg r epeated later in the case. This was for moderate conscious sedation for 90 minutes with appropriate m onitoring. 1% Lidocaine was infiltrated. The pacemaker was removed using blunt and sharp dissection . Antibiotic solution soaked gauze was placed into the pocket. Electrocautery used for hemostasis. T he atrial lead was detached from the pacemaker generator after the pacemaker was removed. Sutures wer e removed from the tie-downs and the atrial lead was advanced into the right atrium and screwed into place. The tie-downs from the ventricular lead likewise had the suture removed and this was then adva nced into the RV apex and screwed into place. Ventricular lead - R-wave 12.7, impedance 545, threshold 0.8 volts. Pacing with 10 volts shows no mu scle or diaphragmatic stimulation. Right atrial lead - P-wave 2.2, impedance 534, threshold 0.6 volts . With pacing at 10 volts, there was no muscle or diaphragmatic stimulation. Both leads were secured in place with two sutures of 0 silk. The antibiotic solution soaked gauze was removed from the subcu taneous pocket and this was irrigated with copious amounts of antibiotic solution. The leads were at tached to the pacemaker generator and this was place into a Tyrex antibiotic sleeve. This was placed into the pocket and secured in place with one suture of 0 silk. The incision was then closed using t wo layers of running 3-0 Vicryl, one layer of running 4-0 Vicryl. Dermabond was placed on the incisi on. The patient tolerated the procedure well.
--- NOTE | 2019-05-26 19:21 | RAD ---
SINGLE VIEW OF THE CHEST: 05/26/19 COMPARISON: 05/24/19 HISTORY: Status post cardiac pacemaker placement. FINDINGS: Single view of the chest shows enlarged but stable cardiomediastinal silhouette. A pacemaker is seen with its leads in the right atrium and ventricle. No pneumothorax is seen. There is no evidence of co nsolidation, mass, or pleural effusion. IMPRESSION: Appropriate position of pacemaker leads. POS: C
[2019-05-26] MEDS: Cipro 250 MG TAB PO SCH (20:13)
[2019-05-26] MEDS: Rosuvastatin 20 MG TAB PO SCH (20:13)
[2019-05-26] MEDS ORDERED: Carvedilol 6.25 MG TAB PO SCH (21:00)
[2019-05-27] MEDS: Cipro 250 MG TAB PO SCH (05:53)
[2019-05-27 07:25] VITALS: BP 122/58; TEMP 97.8
[2019-05-27] MEDS ORDERED: Carvedilol 6.25 MG TAB PO SCH (08:00)
[2019-05-27] MEDS: metFORMIN 500 MG TAB PO SCH (08:59)
[2019-05-27] MEDS: hydrALAZINE 25 MG TAB PO SCH (08:59)
[2019-05-27] MEDS: Amiodarone 200 MG TAB PO SCH (08:59)
--- NOTE | 2019-05-27 14:31 | DIS ---
DATE OF ADMISSION: 05/24/2019 DATE OF DISCHARGE: 05/27/2019 DISCHARGE DISPOSITION: To home. PRIMARY DISCHARGE DIAGNOSES: 1. The patient is status post pacemaker lead revision. 2. Congestive heart failure with diastolic dysfunction and ejection fraction of around 60% to 65%. 3. Atrial fibrillation with rapid ventricular response, rate controlled. 4. Diabetes mellitus, type 2. 5. Hypertension. 6. Morbid obesity. 7. Obstructive sleep apnea. 8. Tobacco abuse. PROCEDURES DONE DURING HOSPITALIZATION: The patient has had repositioning of atrial and ventricular pacemaker leads done by Dr. Holland on 05/26/2019. H and H of 15 and 46, platelet count 136, and MCV 91. Discharge BUN and creatinine are 16 and 1.21. DISCHARGE MEDICATIONS: 1. Eliquis 5 mg p.o. twice daily to resume on the of this month, to hold until then. 2. Amiodarone 200 mg p.o. daily. 3. Coreg 6.25 mg p.o. twice daily. 4. Ciprofloxacin 500 mg p.o. twice daily for 6 days. 5. Hydralazine 50 mg twice daily. 6. Metformin 500 mg p.o. daily. 7. Crestor 20 mg p.o. at bedtime. ALLERGIES: ALLERGIC TO CODEINE. DISCHARGE PLAN: The patient to follow up with Payton Redd in 1 week. He also needs to follow up with Dr. Holland in 1 week. BRIEF COURSE DURING HOSPITALIZATION: The patient initially came in with complaints of chest pain. He also noticed twitching in his upper abdominal and chest wall muscles and was not feeling right. On arrival, he was found to have pacemaker malfunction. He has had consultation with Dr. Holland. The patient had repositioning of his atrial and ventricular pacemaker leads by Dr. Holland on the . Post this procedure, he is hemodynamically stable. He needs to continue ciprofloxacin for another 6 days. He also needs to start his Eliquis on the . His amiodarone dose was increased to 200 and hydralazine was added to his medication regimen. The patient likely has paroxysmal atrial fibrillation and is currently in sinus rhythm, which is paced. He needs to follow up with Dr. Holland in 1 week. Prior to discharge, he is eating and ambulating well. Please note, I have seen and examined the patient on the day of discharge. Job ID: [id number]
--- NOTE | 2019-05-28 04:06 | PQF ---
[employer] Account Representative Crystal Reports Winform Viewer TRE CORREA VINAYA KUMAR MD [id number] [id number] CLINICAL DOCUMENTATION CLARIFICATION FORM: POST DISCHARGE Addendum to original discharge summary date: ____ Late entry note date: __ DATE:05/28/19 ATTN: Maria E Ramos Please exercise your independent, professional judgment in responding to the clarification form. Clinical indicators are provided on the bottom of this form for your review Can you please further clarify the type and acuity of CHF? Please check appropriate box(s): HEART FAILURE: A. TYPE: [ ] Systolic / HFrEF [ x ] Diastolic / HFpEF [ ] Combined Systolic / Diastolic B. ACUITY [ ] Acute [ x ] Acute on Chronic [ ] Chronic [ ] Other diagnosis [ ] Unable to determine In addition, please specify: Present on Admission (POA): [ x ] Yes [ ] No [ ] Unable to determine For continuity of documentation, please document condition throughout progress notes and discharge summary. Thank You. CLINICAL INDICATORS - SIGNS / SYMPTOMS / LABS DS pg.1- Congestive heart failure with diastolic dysfunction and ejection fraction of around 60%- 65% Hospitalist PN 05/25 pg.4- acute systolic congestive heart failure Hospitalist PN 05/25 pg.4 -Chronic diastolic congestive heart failure Chest X ray- No infiltrates of vascular congestion RISKS: Atrial fibrillation- DS pg.1 DM type 2- DS pg.1 Hypertension- DS pg.1 Morbid obesity- DS pg.1 LOUANN- DS pg.1 Tobacco abuse- DS pg.1 TREATMENTS: Cardiology Consult 05/23 Dr. Montejo Chest X ray 05/23 Carvedilol 6.25mg- PO MAR Lead Revision- OP report pg.1 (This form is maintained as a part of the permanent medical record) 2014 [email or web address]. All Rights Reserved [email or web address]
== END 2019-05-27 10:40 | disposition home or self-care (01) | DRG 260 ==
LOC: ERS 09:52 → CCU 11:58 → 2NO 16:50
PROVIDERS: ADMIT Internal Medicine; ATTEND Internal Medicine
PROC: 02WA0MZ Revision of Cardiac Lead in Heart, Open Approach (ICD-10-PCS; principal; 2019-05-26)
DX: T82.120A Displacement of cardiac electrode, initial encounter (principal); I50.33 Acute on chronic diastolic (congestive) heart failure; I13.0 Hypertensive heart and chronic kidney disease with heart failure and stage 1 through stage 4 chronic kidney disease, or unspecified chronic kidney disease; Z68.43 Body mass index [BMI] 50.0-59.9, adult; I44.2 Atrioventricular block, complete; Y83.8 Other surgical procedures as the cause of abnormal reaction of the patient, or of later complication, without mention of misadventure at the time of the procedure; G47.33 Obstructive sleep apnea (adult) (pediatric); E66.01 Morbid (severe) obesity due to excess calories; M19.90 Unspecified osteoarthritis, unspecified site; E11.22 Type 2 diabetes mellitus with diabetic chronic kidney disease; M54.5 Low back pain; G89.29 Other chronic pain; N18.9 Chronic kidney disease, unspecified; Z96.653 Presence of artificial knee joint, bilateral; F17.210 Nicotine dependence, cigarettes, uncomplicated; E78.00 Pure hypercholesterolemia, unspecified; I48.0 Paroxysmal atrial fibrillation; Z88.5 Allergy status to narcotic agent; Z79.84 Long term (current) use of oral hypoglycemic drugs; Z79.01 Long term (current) use of anticoagulants; Z79.899 Other long term (current) drug therapy; Z99.89 Dependence on other enabling machines and devices; Z90.49 Acquired absence of other specified parts of digestive tract
CPT/HCPCS: 33217; 36415; 36416; 71045; 80048; 80053; 82553; 83735; 84484; 85025; 93005; 93798; 96365; 99152; 99153; J0690; J1250; J1580; J2001; J2250; J3010; J3370

== ENCOUNTER 2020-05-26 17:39 | Emergency (ER) | payer BC ==
[2020-05-26 18:36] LABS: #Basophils 0.1 thou/uL (0.0-0.2); #Eosinphils 0.3 thou/uL (0.0-0.7); #Lymphocytes 2.2 thou/uL (1.20-3.40); #Neutrophils 6.9 thou/uL (1.40-6.50); %Basophils 1.3 % (0.0-1.0); %Eosinophils 2.6 % (0.0-10.0); %Lymphocytes 21.1 % (21.0-51.0); %Monocytes 9.1 % (0.0-10.0); %Neutrophils 65.9 % (42.0-75.0); Mean Corpuscular HGB CONC 32.3 g/dL (32.0-36.0); Mean Corpuscular Volume 92.9 fL (78.0-98.0); Mean Platelet Volume 8.4 fL (7.4-10.4); Platelet Count 142 thou/uL (130-400); RBC Distribution Width 13.5 % (11.5-14.5); Red Blood Cell (RBC) Count 5.66 mill/uL (4.70-6.10); White Blood Cell (WBC) Count 10.4 thou/uL (4.8-10.8)
[2020-05-26 18:45] LABS: Prothrombin Time 13.7 sec (12.0-14.7)
[2020-05-26 19:07] LABS: ALT (SGPT) 14 U/L (8-55); AST (SGOT) 16 U/L (5-34); Albumin 3.8 g/dL (3.4-4.8); Alkaline Phosphatase 66 U/L (40-110); Anion Gap 11 mmol/L (10-20); BUN (Urea Nitrogen) 26 mg/dL (8.4-25.7); Bilirubin, Total 0.3 mg/dL (0.2-1.2); Calc. Creatinine Clearance 0 mL/min (70-130); Calcium 9.2 mg/dL (7.8-10.44); Carbon Dioxide 31 mmol/L (23-31); Chloride 102 mmol/L (98-107); Globulin 3.2 g/dL (2.4-3.5); Glucose 231 mg/dL (80-115); Potassium 4.5 mmol/L (3.5-5.1); Sodium 139 mmol/L (136-145)
== END 2020-05-26 20:51 | disposition home or self-care (01) ==
LOC: ERS 17:39
DX: R60.0 Localized edema (principal); M79.661 Pain in right lower leg; G47.33 Obstructive sleep apnea (adult) (pediatric); M19.90 Unspecified osteoarthritis, unspecified site; I48.91 Unspecified atrial fibrillation; I13.0 Hypertensive heart and chronic kidney disease with heart failure and stage 1 through stage 4 chronic kidney disease, or unspecified chronic kidney disease; I50.20 Unspecified systolic (congestive) heart failure; N18.9 Chronic kidney disease, unspecified; E11.22 Type 2 diabetes mellitus with diabetic chronic kidney disease; F17.210 Nicotine dependence, cigarettes, uncomplicated; Z79.01 Long term (current) use of anticoagulants; Z79.899 Other long term (current) drug therapy; Z79.84 Long term (current) use of oral hypoglycemic drugs
CPT/HCPCS: 36415; 80053; 82550; 85025; 85610

== ENCOUNTER 2020-12-19 07:36 | Outpatient (CLI) | payer BC ==
[2020-12-19] MEDS ORDERED: Regadenoson 0.4 MG/5 ML SYRINGE ONE (10:25)
== END 2020-12-19 07:37 | disposition home or self-care (01) ==
LOC: NM 07:36
PROVIDERS: ATTEND Internal Medicine Cardiovascular Disease
DX: I47.2 Ventricular tachycardia (principal); I25.9 Chronic ischemic heart disease, unspecified
CPT/HCPCS: 78452; 93017; A9500; J2785

== ENCOUNTER 2021-04-28 13:55 | Outpatient (CLI) | payer BC | END 2021-04-28 13:56 | disposition home or self-care (01) | LOC: DTY/OP 13:55 | PROVIDERS: ATTEND Specialist | DX: E66.01 Morbid (severe) obesity due to excess calories (principal) | CPT/HCPCS: 97802 ==

== ENCOUNTER 2021-05-26 11:49 | Outpatient (CLI) | payer BC, SELFPAY ==
[2021-05-27 16:09] LABS: SARS-CoV-2 PCR by NAA Not Detected (NotDetected)
== END 2021-05-26 11:50 | disposition home or self-care (01) ==
LOC: LABBT 11:49
PROVIDERS: ATTEND Specialist
DX: Z01.818 Encounter for other preprocedural examination (principal); E11.9 Type 2 diabetes mellitus without complications; G47.33 Obstructive sleep apnea (adult) (pediatric); I10 Essential (primary) hypertension; E88.81 Metabolic syndrome and other insulin resistance; E66.01 Morbid (severe) obesity due to excess calories; Z72.0 Tobacco use; Z20.822 Contact with and (suspected) exposure to COVID-19
CPT/HCPCS: 93005; 93010; U0003; U0005

== ENCOUNTER 2023-02-06 09:40 | Outpatient (CLI) | payer BC ==
[2023-02-06 10:56] LABS: #Basophils 0.1 10x3/uL (0.0-0.2); #Eosinphils 0.2 10x3/uL (0.0-0.5); #Monocytes 0.8 10x3/uL (0.0-1.1); %Eosinophils 2.5 % (0.0-6.0); %Lymphocytes 20.5 % (18.0-47.0); %Monocytes 9.3 % (0.0-10.0); %Neutrophils 66.1 % (40.0-75.0); Hematocrit 47.5 % (38.8-50.0); Hemoglobin 15.5 g/dL (13.5-17.5); Mean Corpuscular HGB CONC 32.6 g/dL (32.0-36.0); Mean Corpuscular Hemoglobin 29.8 pg (27.0-33.0); Mean Corpuscular Volume 91.3 fl (81.2-95.1); Mean Platelet Volume 10.3 fl (7.4-10.4); Platelet Count 165 10x3/uL (150-450); RBC Distribution Width 14.2 % (11.5-14.5); White Blood Cell (WBC) Count 9.1 10x3/uL (3.5-10.5)
[2023-02-06 11:19] LABS: Anion Gap 14 mmol/L (10-20); BUN (Urea Nitrogen) 19 mg/dL (8.4-25.7); Calc. Creatinine Clearance 0 mL/min (70-130); Calcium 8.9 mg/dL (7.8-10.44); Carbon Dioxide 29 mmol/L (23-31); Chloride 101 mmol/L (98-107); Estimated GFR 61; Glucose 103 mg/dL (80-115); Potassium 3.9 mmol/L (3.5-5.1); Sodium 140 mmol/L (136-145)
== END 2023-02-06 09:41 | disposition home or self-care (01) ==
LOC: LABBT 09:40
PROVIDERS: ATTEND Internal Medicine Cardiovascular Disease
DX: Z01.812 Encounter for preprocedural laboratory examination (principal); I48.91 Unspecified atrial fibrillation
CPT/HCPCS: 80048; 85025

== ENCOUNTER 2023-09-12 10:39 | Observation (INO) | payer MEDICARE, OTHER ==
[2023-09-12 19:44] VITALS: BMI 31.8
[2023-09-12] MEDS ORDERED: Dextrose 50% Abboject 50 ML SYRINGE SLOW IVP PRN (20:41)
[2023-09-12] MEDS ORDERED: Ondansetron PF 4 MG/2 ML Vial IVP PRN (20:41)
[2023-09-12] MEDS ORDERED: Glucagon 1 MG/ML KIT IM PRN (20:41)
[2023-09-12] MEDS ORDERED: Dextrose 5% in Water 1,000 ML IV PRN (20:41)
[2023-09-12] MEDS ORDERED: Acetaminophen 325 MG TAB PO PRN (20:41)
[2023-09-12 21:09] LABS: #Basophils 0.05 10x3/uL (0.0-0.2); %Basophils 0.7 % (0.0-1.0); %Eosinophils 4.3 % (0.0-10.0); %Lymphocytes 16.6 % (21.0-51.0); %Monocytes 9.4 % (0.0-10.0); %Neutrophils 68.1 % (42.0-75.0); Hematocrit 28.3 % (42.0-52.0); Hemoglobin 8.3 g/dL (14.0-18.0); Mean Corpuscular HGB CONC 29.3 g/dL (32.0-36.0); Mean Corpuscular Hemoglobin 23.6 pg (27.0-31.0); Mean Corpuscular Volume 80.4 fL (78.0-98.0); Mean Platelet Volume 10.1 fL (7.4-10.4); Platelet Count 152 10x3/uL (130-400); RBC Distribution Width 16.4 % (11.5-14.5); Red Blood Cell (RBC) Count 3.52 mill/uL (4.70-6.10)
[2023-09-12] MEDS: Amiodarone 200 MG TAB PO SCH (22:08)
[2023-09-12] MEDS: Sildenafil Citrate 20 MG TAB PO SCH (22:09)
[2023-09-12] MEDS: Heparin 5,000 UNITS/ML VIAL SC SCH (22:18)
[2023-09-12 23:50] LABS: Iron 21 ug/dL (65-175); Iron Binding Capacity, Total 353 mcg/dL (261-462)
[2023-09-12 23:56] LABS: Troponin I 0.061 ng/mL (< 0.028)
[2023-09-13] MEDS: Furosemide 40 MG (4 mL) VIAL SLOW IVP SCH (06:54)
[2023-09-13] MEDS ORDERED: Metolazone 5 MG TAB PO PRN (09:00)
[2023-09-13] MEDS: Aspirin Chewable 81 MG TAB PO SCH (09:14)
[2023-09-13 10:34] LABS: Ferritin 84.11 ng/mL (22-322)
[2023-09-13 10:50] LABS: #Basophils 0.06 10x3/uL (0.0-0.2); %Basophils 0.8 % (0.0-1.0); %Eosinophils 4.1 % (0.0-10.0); %Lymphocytes 13.4 % (21.0-51.0); %Monocytes 14.6 % (0.0-10.0); %Neutrophils 66.1 % (42.0-75.0); Mean Corpuscular Hemoglobin 24.2 pg (27.0-31.0); Mean Corpuscular Volume 83.3 fL (78.0-98.0); Mean Platelet Volume 10.1 fL (7.4-10.4); Platelet Count 180 10x3/uL (130-400); RBC Distribution Width 16.5 % (11.5-14.5); Red Blood Cell (RBC) Count 3.72 mill/uL (4.70-6.10)
[2023-09-13 11:22] LABS: Anion Gap 15 mmol/L (10-20); BUN (Urea Nitrogen) 27 mg/dL (8.4-25.7); Calc. Creatinine Clearance 74 mL/min (70-130); Calcium 8.8 mg/dL (7.8-10.44); Carbon Dioxide 26 mmol/L (23-31); Chloride 103 mmol/L (98-107); Estimated GFR 48; Glucose 125 mg/dL (80-115); Potassium 3.8 mmol/L (3.5-5.1); Sodium 140 mmol/L (136-145)
[2023-09-13 11:24] LABS: Digoxin 1.34 ng/mL (0.8-2.0)
[2023-09-13 11:26] LABS: Troponin I 0.056 ng/mL (< 0.028)
[2023-09-13 17:12] VITALS: BP 124/68; TEMP 97.8
[2023-09-14] MEDS ORDERED: Ferrous Sulfate 325 MG TAB PO SCH (08:00)
== END 2023-09-13 17:30 | disposition home or self-care (01) ==
LOC: 2SW 10:39
PROVIDERS: ADMIT Internal Medicine; ATTEND Internal Medicine
PROC: B246ZZZ Ultrasonography of Right and Left Heart (ICD-10-PCS; principal; 2023-09-12)
DX: I11.0 Hypertensive heart disease with heart failure (principal); I50.42 Chronic combined systolic (congestive) and diastolic (congestive) heart failure; E11.9 Type 2 diabetes mellitus without complications; R79.89 Other specified abnormal findings of blood chemistry; I49.5 Sick sinus syndrome; I08.0 Rheumatic disorders of both mitral and aortic valves; I47.20 Ventricular tachycardia, unspecified; E66.01 Morbid (severe) obesity due to excess calories; G47.33 Obstructive sleep apnea (adult) (pediatric); D64.9 Anemia, unspecified; I21.A1 Myocardial infarction type 2; R89.2 Abnormal level of other drugs, medicaments and biological substances in specimens from other organs, systems and tissues; D50.9 Iron deficiency anemia, unspecified; Z79.899 Other long term (current) drug therapy; Z79.82 Long term (current) use of aspirin; Z88.5 Allergy status to narcotic agent; Z96.653 Presence of artificial knee joint, bilateral; Z90.49 Acquired absence of other specified parts of digestive tract; Z95.0 Presence of cardiac pacemaker; Z98.890 Other specified postprocedural states; Z95.5 Presence of coronary angioplasty implant and graft; Z68.31 Body mass index [BMI] 31.0-31.9, adult
CPT/HCPCS: 80048; 80162; 82607; 82728; 82962 ×2; 83540; 83550; 84484 ×2; 85025 ×2; 93306; J1644; 36415; 36416; 96372; G0378

== ENCOUNTER 2024-11-19 17:38 | Emergency (ER) | payer MEDICARE, OTHER ==
[2024-11-19 19:10] LABS: #Basophils 0.08 10x3/uL (0.0-0.2); #Eosinophils 0.18 10x3/uL (0.0-0.7); #Monocytes 0.74 10x3/uL (0.11-0.59); #Neutrophils 4.32 10x3/uL (1.40-6.50); %Basophils 1.2 % (0.0-1.0); %Eosinophils 2.7 % (0.0-10.0); %Lymphocytes 20.1 % (21.0-51.0); %Monocytes 11.0 % (0.0-10.0); %Neutrophils 64.6 % (42.0-75.0); Hematocrit 33.5 % (42.0-52.0); Hemoglobin 9.5 g/dL (14.0-18.0); Mean Corpuscular Hemoglobin 20.3 pg (27.0-31.0); Mean Corpuscular Volume 71.4 fL (78.0-98.0); Platelet Count 159 10x3/uL (130-400); Red Blood Cell (RBC) Count 4.69 mill/uL (4.70-6.10); White Blood Cell (WBC) Count 6.70 10x3/uL (4.8-10.8)
[2024-11-19 19:18] LABS: ALT (SGPT) 9 U/L (Less than 45); AST (SGOT) 14 U/L (11-34); Albumin 3.9 g/dL (3.1-4.5); Alkaline Phosphatase 62 U/L (40-110); Anion Gap 11 mmol/L (10-20); BUN (Urea Nitrogen) 30 mg/dL (8.4-25.7); Bilirubin, Total 0.5 mg/dL (0.3-1.2); Calc. Creatinine Clearance 0 mL/min (70-130); Calcium 8.6 mg/dL (7.8-10.44); Carbon Dioxide 25 mmol/L (23-31); Chloride 108 mmol/L (98-107); Globulin 2.8 g/dL (2.4-3.5); Glucose 91 mg/dL (80-115); Potassium 4.1 mmol/L (3.5-5.1); Sodium 140 mmol/L (136-145)
== END 2024-11-19 21:13 | disposition home or self-care (01) ==
LOC: ERS 17:38
DX: E86.0 Dehydration (principal); I48.91 Unspecified atrial fibrillation; E11.9 Type 2 diabetes mellitus without complications; F17.210 Nicotine dependence, cigarettes, uncomplicated; Z79.01 Long term (current) use of anticoagulants
CPT/HCPCS: 36415; 71045; 80053; 83880; 84484; 85025; 93005; 96360; 96361